=== PATIENT | male | born 1960 | race Caucasian/White ===

== ENCOUNTER 2016-11-14 00:07 | Emergency (ER) | payer OTHER, SELFPAY ==
[2016-11-14] MEDS ORDERED: Ondansetron HCl/PF 4 MG/2 ML Vial ONE (00:44)
[2016-11-14 01:07] LABS: Lactic Acid - Sepsis 2.1 mmol/L (0.5-2.2)
[2016-11-14 01:15] LABS: Band 4 % (5-11); Hematocrit 37.9 % (42.0-52.0); Mean Platelet Volume 8.2 fL (7.4-10.4); Neutrophil 87 % (42-75); Red Blood Cell (RBC) Count 4.31 mill/uL (4.70-6.10); White Blood Cell (WBC) Count 21.6 thou/uL (4.8-10.8)
[2016-11-14] MEDS ORDERED: Acetaminophen 500 MG TAB ONE (01:20)
[2016-11-14 02:09] LABS: Bilirubin Negative (Negative); Blood, Urine Small (Negative); Glucose, Urine (Dipstick) 100 mg/dL (Negative); Ketone, Urine 40 mg/dL (Negative); Protein, Urine (Dipstick) 30 mg/dL (Neg-Trace)
[2016-11-14 02:10] LABS: Nitrite Negative (Negative)
[2016-11-14 02:33] LABS: Bacteria/HPF Rare-Few HPF (None Seen); Hyaline Casts/LPF 0-3 HYALINE CAST LPF (0-3 Hyaline); Squamous Epithelial None Seen HPF (0-3)
[2016-11-14 02:35] LABS: Yeast-All Forms None Seen HPF (None Seen)
[2016-11-14 02:51] LABS: Chloride 101 mmol/L (98-107)
[2016-11-14 02:52] LABS: Calcium 9.8 mg/dL (7.8-10.44)
[2016-11-14 02:53] LABS: Globulin 3.4 g/dL (2.4-3.5); Protein, Total 7.2 g/dL (6.0-8.3)
[2016-11-14 02:54] LABS: Anion Gap 13 mmol/L (10-20); Bilirubin, Total 0.7 mg/dL (0.2-1.2); Carbon Dioxide 24 mmol/L (22-29)
[2016-11-14 02:55] LABS: Alkaline Phosphatase 101 U/L (40-150)
[2016-11-14 02:56] LABS: BUN (Urea Nitrogen) 12 mg/dL (8.4-25.7); Calc. Creatinine Clearance 0 mL/min (70-130); Estimated GFR-MDRD 83
[2016-11-14 02:57] LABS: AST (SGOT) 10 U/L (5-34)
[2016-11-14] MEDS ORDERED: cefTRIAXone\\ROCEPHIN 2 GM VIAL ONE (02:57)
[2016-11-14 02:58] LABS: ALT (SGPT) 7 U/L (8-55); Lipase 12 U/L (8-78)
[2016-11-14 02:59] LABS: CK (CPK) 46 U/L (30-200)
[2016-11-14 06:57] LABS: pH (Venous) 7.565 (7.35-7.45)
[2016-11-14 06:58] LABS: Anion Gap 9 mmol/L (-14-95); T. Carbon Dioxide 23.6 mmol/L (1.0-85.0); vO2 Saturation-calc 96.6 % (0.0-100.0)
--- NOTE | 2016-11-14 07:59 | RAD ---
SINGLE VIEW OF THE CHEST: COMPARISON: 04/17/16. HISTORY: Fever, chills, and vomiting. FINDINGS: Single view of the chest shows a normal sized cardiomediastinal silhouette. There is no evidence of consolidation, mass, or pleural effusion. The bones are unremarkable. IMPRESSION: No evidence of acute cardiopulmonary disease. POS: [facility]
== END 2016-11-14 06:08 | disposition left against medical advice (07) ==
LOC: ERS 00:07
DX: N39.0 Urinary tract infection, site not specified (principal); E11.9 Type 2 diabetes mellitus without complications; I25.2 Old myocardial infarction; I10 Essential (primary) hypertension; Z87.891 Personal history of nicotine dependence; Z79.899 Other long term (current) drug therapy; Z79.84 Long term (current) use of oral hypoglycemic drugs; Z79.4 Long term (current) use of insulin; Z79.82 Long term (current) use of aspirin
CPT/HCPCS: 36415; 71010; 80053; 81003; 81015; 82010; 82330; 82550; 82803; 83605; 83690; 85025; 87040; 87077; 87086; 87186; 93005; 96361; 96365; 96375; J0696; J2405

== ENCOUNTER 2017-03-14 08:40 | Outpatient (CLI) | payer MEDICAID ==
[2017-03-14 10:11] LABS: Hemoglobin 13.4 g/dL (14.0-18.0); Mean Corpuscular Hemoglobin 30.3 pg (27.0-31.0); Mean Corpuscular Volume 89.3 fl (80.0-94.0); Mean Platelet Volume 7.8 fL (7.4-10.4); Platelet Count 233 thou/uL (130-400); RBC Distribution Width 12.6 % (11.5-14.5); Red Blood Cell (RBC) Count 4.41 mill/uL (4.70-6.10); White Blood Cell (WBC) Count 15.4 thou/uL (4.8-10.8)
[2017-03-14 10:33] LABS: Anion Gap 15 mmol/L (10-20); BUN (Urea Nitrogen) 14 mg/dL (8.4-25.7); Calc. Creatinine Clearance 0 mL/min (70-130); Carbon Dioxide 26 mmol/L (22-29); Chloride 101 mmol/L (98-107); Estimated GFR-MDRD 75; Glucose 198 mg/dL (70-105); Potassium 5.3 mmol/L (3.5-5.1); Sodium 137 mmol/L (136-145)
== END 2017-03-14 08:41 | disposition home or self-care (01) ==
LOC: LABBT 08:40
PROVIDERS: ATTEND Orthopaedic Surgery
DX: Z01.818 Encounter for other preprocedural examination (principal); Q74.1 Congenital malformation of knee
CPT/HCPCS: 80048; 85027; 93005; 93010

== ENCOUNTER 2017-03-18 10:56 | Day surgery (SDC) | payer MEDICAID ==
[2017-03-14 09:11] VITALS: BMI 23.6
[2017-03-18] MEDS ORDERED: CEFAZOLIN/Water 2 GM/20 ML SYRINGE ONE (11:28)
[2017-03-18] MEDS ORDERED: Lidocaine 1% (PF) 30 ML VIAL ONE (11:51)
[2017-03-18] MEDS ORDERED: Midazolam HCl 2 mg/2 ml Vial ONE (11:51)
[2017-03-18] MEDS ORDERED: Fentanyl 100 MCG/2 ML VIAL ONE ×2 (11:51→12:29)
[2017-03-18] MEDS ORDERED: Bupivacaine PF 0.5% 30 ML VIAL ONE (11:55)
[2017-03-18] MEDS ORDERED: Ropivacaine 0.2% HCl/PF (40 MG/20 ML VIAL) ONE (12:00)
[2017-03-18] MEDS ORDERED: Ropivacaine 0.5% HCl/PF (150 MG/30 ML VIAL) ONE (12:00)
[2017-03-18] MEDS ORDERED: Promethazine HCl 25 MG/ML VIAL IM PRN (12:20)
[2017-03-18] MEDS ORDERED: Zolpidem Tartrate 5 MG TAB PO PRN (12:20)
[2017-03-18] MEDS ORDERED: Ondansetron HCl/PF 4 MG/2 ML Vial IVP PRN (12:20)
[2017-03-18] MEDS ORDERED: traMADol HCl 50 MG TAB PO PRN ×2 (12:20)
[2017-03-18] MEDS ORDERED: Ropivacaine 0.2% 550 ML 550 ML NERVE BLCK SCH (12:20)
[2017-03-18] MEDS ORDERED: HYDROcodone/Acetaminophen 5/325 mg Tablet PO PRN ×2 (12:20)
[2017-03-18] MEDS ORDERED: Fentanyl 100 MCG/2 ML VIAL IV PRN (12:21)
[2017-03-18] MEDS ORDERED: Metoclopramide HCl 10 MG/2 ML VIAL ONE (12:30)
[2017-03-18] MEDS ORDERED: PHENYLEPHRINE-NS 100 MCG/ML 10 ML SYRINGE ONE (12:30)
[2017-03-18] MEDS ORDERED: Dexamethasone 20 MG/5 ML VIAL ONE (12:30)
[2017-03-18] MEDS ORDERED: Propofol 200 MG/20 ML VIAL ONE (12:30)
[2017-03-18] MEDS ORDERED: Ondansetron HCl/PF 4 MG/2 ML Vial ONE (12:30)
[2017-03-18] MEDS ORDERED: ePHEDrine/0.9% NaCl/PF SYRINGE 50 mg/10 ml ONE (12:30)
[2017-03-18] MEDS ORDERED: Lidocaine 1% PF 5 ML VIAL ONE (12:30)
[2017-03-18] MEDS ORDERED: HYDROmorphone 0.5 MG/0.5 ML SYRINGE ONE (12:35)
--- NOTE | 2017-03-18 14:32 | RAD ---
RIGHT KNEE ONE VIEW FLUOROSCOPIC: History: Patellar fracture. Comparison: None. FINDINGS: Evaluation of the patella and tibia is limited on a single AP spot fluoroscopic image. IMPRESSION: Single spot fluoroscopic image for surgical purposes. POS: [facility]
--- NOTE | 2017-03-18 20:37 | OP ---
DATE OF PROCEDURE: 03/18/2017. PREOPERATIVE DIAGNOSIS: Symptomatic bipartite patella, right. POSTOPERATIVE DIAGNOSIS: Symptomatic bipartite patella, right. SURGICAL PROCEDURE: Excision of right symptomatic bipartite patella. ANESTHESIA: General. SURGEON: Vito Lerma M.D. TOURNIQUET TIME: A 23 minutes at 300 mmHg. SPECIMEN: Bipartite fragment discarded. COMPLICATIONS: None. DRAINS: None. SPECIMEN: None. OUTCOME: Satisfactory. INDICATIONS: Patient is a pleasant 57-year-old gentleman who presents with a history of a painful martinez perior lateral patella, especially when he kneels on the knee. Workup included plain x-rays that hudson w bipartite fragment that appear unstable. He has pain to direct palpation in this area and after di scussion with the patient, we have decided to proceed with excision of the bipartite fragment. Infor med consent has been obtained. PROCEDURE IN DETAIL: Patient was brought to the operating room and a timeout performed followed by i nduction of general anesthesia. Patient was positioned supine on the OR table then a sterile prep an d drape was performed. Next, the limb was exsanguinated with Esmarch bandage, tourniquet inflated to 300 mmHg. A small linear incision was made vertically over the lateral aspect of the patella after the skin was sharply incised. Dissection was carried down sharply right along the edge of the patell a incising the lateral retinaculum and periosteum. Using subperiosteal dissection, the retinaculum w as released off of the lateral edge of the patella and then the retinaculum was elevated off the wallace lla revealing the two bipartite fragments. These were both found to be highly mobile and felt to be consistent with the patient's pain symptoms. As such, the two bipartite fragments were removed witho ut difficulty once the surrounding soft tissue had been released from them. Once removed, some small bony prominences were smoothed with the rongeur and then the knee was irrigated with normal saline w ith bulb syringe. A #1 Ethibond suture was used to reapproximate the lateral retinaculum and joint c apsule followed by 2-0 Vicryl and laura for the skin. A Xeroform gauze, Webril, and Herb wrap dress ing was applied to the knee. The patient was placed in knee immobilizer and then then the tourniquet was let down and patient was transferred to recovery room in stable condition. There were no compli cations. He tolerated the procedure well.
== END 2017-03-18 15:45 | disposition home or self-care (01) ==
LOC: SDC 10:56
PROVIDERS: ATTEND Orthopaedic Surgery
PROC: 0QBD0ZZ Excision of Right Patella, Open Approach (ICD-10-PCS; principal; 2017-03-18)
DX: Q74.1 Congenital malformation of knee (principal); I25.10 Atherosclerotic heart disease of native coronary artery without angina pectoris; E11.9 Type 2 diabetes mellitus without complications; M47.9 Spondylosis, unspecified; Z79.82 Long term (current) use of aspirin; Z79.84 Long term (current) use of oral hypoglycemic drugs; Z79.899 Other long term (current) drug therapy; Z88.6 Allergy status to analgesic agent; Z88.5 Allergy status to narcotic agent; Z88.8 Allergy status to other drugs, medicaments and biological substances; Z96.643 Presence of artificial hip joint, bilateral; Z95.818 Presence of other cardiac implants and grafts; Z98.890 Other specified postprocedural states; Z87.891 Personal history of nicotine dependence
CPT/HCPCS: 76001; A4306; J0131; J1100; J1170; J2001; J2250; J2405; J2704; J2765; J2795; J3010; S0020

== ENCOUNTER 2017-04-18 09:55 | Outpatient (CLI) | payer MEDICAID ==
--- NOTE | 2017-04-18 11:50 | RAD ---
PA AND LATERAL CHEST RADIOGRAPH: Date: 04-18-17 History: Dyspnea. Comparison: 04-17-16 FINDINGS: Cardiac silhouette and pulmonary vasculature are within normal limits. Lung are clear. Vascular calci fications of the thoracic aorta. Degenerative changes are noted in the spine. Metallic suture materia l overlies the anterior abdomen in the midline. IMPRESSION: Stable chest without evidence of an acute cardiopulmonary process. POS: [facility]
== END 2017-04-18 09:56 | disposition home or self-care (01) ==
LOC: RAD 09:55
PROVIDERS: ATTEND Internal Medicine Critical Care Medicine
DX: R06.00 Dyspnea, unspecified (principal)
CPT/HCPCS: 71046

== ENCOUNTER 2017-05-30 08:36 | Emergency (ER) | payer OTHER ==
[2017-05-30 10:21] LABS: #Basophils 0.1 thou/uL (0.0-0.2); #Eosinphils 0.2 thou/uL (0.0-0.7); #Lymphocytes 2.5 thou/uL (1.20-3.40); #Monocytes 0.9 thou/uL (0.11-0.59); #Neutrophils 9.8 thou/uL (1.40-6.50); %Basophils 0.4 % (0.0-1.0); %Eosinophils 1.6 % (0.0-10.0); %Lymphocytes 18.8 % (21.0-51.0); %Monocytes 6.5 % (0.0-10.0); %Neutrophils 72.8 % (42.0-75.0); Hemoglobin 14.1 g/dL (14.0-18.0); Mean Corpuscular HGB CONC 34.3 g/dL (32.0-36.0); Mean Corpuscular Hemoglobin 30.8 pg (27.0-31.0); Mean Corpuscular Volume 89.9 fl (80.0-94.0); Mean Platelet Volume 7.8 fL (7.4-10.4); Platelet Count 237 thou/uL (130-400); RBC Distribution Width 12.3 % (11.5-14.5); Red Blood Cell (RBC) Count 4.57 mill/uL (4.70-6.10); White Blood Cell (WBC) Count 13.4 thou/uL (4.8-10.8)
[2017-05-30] MEDS ORDERED: Ondansetron HCl/PF 4 MG/2 ML Vial ONE (10:22)
[2017-05-30 10:43] LABS: Bilirubin Negative (Negative); Blood, Urine Negative (Negative); Clarity CLEAR (Clear); Glucose, Urine (Dipstick) 100 mg/dL (Negative); Leukocyte Negative (Negative); Nitrite Negative (Negative); Protein, Urine (Dipstick) Negative (Neg-Trace); Specific Gravity, Urine 1.011 (1.002-1.036); Urobilinogen 0.2 mg/dL (0.2-1.0)
[2017-05-30 10:48] LABS: ALT (SGPT) 12 U/L (8-55); AST (SGOT) 11 U/L (5-34); Albumin 4.7 g/dL (3.5-5.0); Alkaline Phosphatase 141 U/L (40-150); Anion Gap 13 mmol/L (10-20); BUN (Urea Nitrogen) 18 mg/dL (8.4-25.7); Bilirubin, Total 0.5 mg/dL (0.2-1.2); CRP (Inflammatory) Less than 0.50 mg/dL (= or < 0.5); Calc. Creatinine Clearance 0 mL/min (70-130); Calcium 10.5 mg/dL (7.8-10.44); Carbon Dioxide 23 mmol/L (22-29); Chloride 105 mmol/L (98-107); Estimated GFR-MDRD 81; Globulin 3.5 g/dL (2.4-3.5); Glucose 160 mg/dL (70-105); Lipase 29 U/L (8-78); Potassium 4.3 mmol/L (3.5-5.1); Protein, Total 8.2 g/dL (6.0-8.3); Sodium 137 mmol/L (136-145)
[2017-05-30 10:52] LABS: CKMB 0.9 ng/mL (0-6.6); Troponin I Less than 0.010 ng/mL (< 0.028)
--- NOTE | 2017-05-30 11:01 | CT ---
CT ADOMEN AND PELVIS WITH CONTRAST: Date: 05/30/17 COMPARISON: 11/08/11 and 03/02/16. HISTORY: Nausea, vomiting, and dizziness. Abdominal pain. TECHNIQUE: Multiple contiguous axial images were obtained in a CT of the abdomen and pelvis with contrast. Coron al reformats were performed. FINDINGS: The liver, gallbladder, kidneys, adrenal glands, spleen, and pancreas are unremarkable. No free air, free fluid, or stranding changes are seen in the abdomen or pelvis. Scattered diverticula are seen in the colon. The small bowel is unremarkable. There is mild ectasia of the infrarenal aorta. No abdominal or pelvic lymphadenopathy seen. Degenerative changes are seen in the spine. The abdominal wall soft tissues and visualized inferior t horax are unremarkable. IMPRESSION: 1. No evidence of acute intraabdominal/pelvic abnormality. 2. Diverticulosis. POS: [facility]
[2017-05-30] MEDS ORDERED: Mag-Al 1200 mg/1200 mg/30 ML UDCUP ONE (11:17)
[2017-05-30] MEDS ORDERED: Lidocaine Viscous Sol 2% 15 ml UD Cup ONE (11:17)
--- NOTE | 2017-08-03 16:15 | EKG ---
Test Reason : WEAKNESS Blood Pressure : / mmHG Vent. Rate : 058 BPM Atrial Rate : 058 BPM P-R Int : 162 ms QRS Dur : 100 ms QT Int : 412 ms P-R-T Axes : 081 034 051 degrees QTc Int : 404 ms Sinus bradycardia Incomplete right bundle branch block Junctional ST depression, probably normal Borderline ECG No changes since 14-NOV-2016 Confirmed by HOWARD CAMPBELL, HEIDI ([id number]), international editorial producer KEV SINGH ([id number]) on 08/03/2017 4:15:51 PM Referred By: Confirmed By:HEIDI LAWRENCE MD
== END 2017-05-30 12:01 | disposition home or self-care (01) ==
LOC: ERS 08:36
DX: K29.70 Gastritis, unspecified, without bleeding (principal); E11.9 Type 2 diabetes mellitus without complications; I25.2 Old myocardial infarction; I10 Essential (primary) hypertension; M16.11 Unilateral primary osteoarthritis, right hip; F17.210 Nicotine dependence, cigarettes, uncomplicated; Z71.6 Tobacco abuse counseling; Z79.84 Long term (current) use of oral hypoglycemic drugs; Z79.82 Long term (current) use of aspirin; Z79.899 Other long term (current) drug therapy
CPT/HCPCS: 74177; 80053; 81003; 82550; 82553; 83690; 84484; 85025; 85652; 86140; 87086; 93005; 96361; 96374; 99406; J2405

== ENCOUNTER 2017-07-08 11:25 | Outpatient (CLI) | payer OTHER ==
[2017-07-08 12:16] LABS: Hemoglobin 13.5 g/dL (14.0-18.0); Mean Corpuscular HGB CONC 34.9 g/dL (32.0-36.0); Mean Corpuscular Hemoglobin 30.3 pg (27.0-31.0); Mean Platelet Volume 8.1 fL (7.4-10.4); Platelet Count 210 thou/uL (130-400); RBC Distribution Width 12.2 % (11.5-14.5); Red Blood Cell (RBC) Count 4.46 mill/uL (4.70-6.10); White Blood Cell (WBC) Count 10.5 thou/uL (4.8-10.8)
[2017-07-08 12:35] LABS: ALT (SGPT) 12 U/L (8-55); AST (SGOT) 12 U/L (5-34); Albumin 4.5 g/dL (3.5-5.0); Alkaline Phosphatase 129 U/L (40-150); Anion Gap 10 mmol/L (10-20); BUN (Urea Nitrogen) 19 mg/dL (8.4-25.7); Bilirubin, Total 0.4 mg/dL (0.2-1.2); Calc. Creatinine Clearance 0 mL/min (70-130); Carbon Dioxide 24 mmol/L (22-29); Chloride 105 mmol/L (98-107); Estimated GFR-MDRD 72; Globulin 3.3 g/dL (2.4-3.5); Glucose 185 mg/dL (70-105); Potassium 4.1 mmol/L (3.5-5.1); Protein, Total 7.8 g/dL (6.0-8.3); Sodium 135 mmol/L (136-145)
== END 2017-07-08 11:26 | disposition home or self-care (01) ==
LOC: LABBT 11:25
PROVIDERS: ATTEND Internal Medicine Cardiovascular Disease
DX: Z01.812 Encounter for preprocedural laboratory examination (principal); I25.119 Atherosclerotic heart disease of native coronary artery with unspecified angina pectoris
CPT/HCPCS: 80053; 85027

== ENCOUNTER 2017-07-10 06:01 | Day surgery (SDC) | payer OTHER ==
[2017-07-08 11:48] VITALS: BMI 23.0
[2017-07-10] MEDS ORDERED: Lidocaine 1% (PF) 30 ML VIAL ONE ×2 (06:36→08:21)
[2017-07-10] MEDS ORDERED: Heparin 0 ML ONE (06:36)
[2017-07-10] MEDS ORDERED: Diazepam 5 MG TAB ONE (07:09)
[2017-07-10 07:21] LABS: PTT 30.9 SEC (22.9-36.1); Prothrombin Time 13.7 SEC (12.0-14.7)
[2017-07-10] MEDS ORDERED: Fentanyl 100 MCG/2 ML VIAL ONE (08:44)
[2017-07-10] MEDS ORDERED: Midazolam HCl 2 mg/2 ml Vial ONE ×2 (08:44→09:01)
[2017-07-10] MEDS ORDERED: Nitroglycerin 100MG/250ML BOT 250 ML ONE (09:04)
[2017-07-10] MEDS ORDERED: Iopamidol 370 76% 100 ML VIAL ONE (11:44)
--- NOTE | 2017-07-10 15:08 | DIS ---
DATE OF ADMISSION: 07/10/2017 DATE OF DISCHARGE: 07/10/2017 CARDIOLOGY SUMMARY Mr. Sherwood underwent cardiac catheterization today, revealed diffuse atherosclerotic heart disease with very small vessels, especially the LAD system. Specifically, the patient's, 1. Left main normal. 2. LAD 50%-60% proximal. 3. LAD 60%-70% after a diagonal branch with some distal disease, very small vessel. 4. Circumflex 50%-60%. 5. Right coronary, several lesions 50%-60%. Previously placed stent was patent with good flow. Ejection fraction of 60%. The patient's LDL cholesterol is controlled. The patient has continued to have chest pain recently. It is mostly epigastric and in the left arm. This persisted despite Protonix. The patient was asked to take clopidogrel starting last week, but he said this has not yet been approved, but he now thinks it is approved and he has it at the pharmacy. I have also asked him to take Nitroglycerin if needed and add isosorbide. We will take him off carvedilol. If the pain persists, bypass surgery would need to be considered, although the patient's prognosis would still likely be poor if he continues to smoke along with diabetes. The patient understands that it is critical to quit smoking and take medicines as prescribed. He will see us in a couple of weeks. If the symptoms persist, we will refer for consideration for bypass surgery, although again I do not think he is an optimal candidate due to the small vessels. The patient wishes a trial of medical therapy first. AMIRAH
== END 2017-07-10 14:20 | disposition home or self-care (01) ==
LOC: CCL 06:01
PROVIDERS: ATTEND Internal Medicine Cardiovascular Disease
PROC: 4A023N7 Measurement of Cardiac Sampling and Pressure, Left Heart, Percutaneous Approach (ICD-10-PCS; principal; 2017-07-10)
DX: I25.119 Atherosclerotic heart disease of native coronary artery with unspecified angina pectoris (principal); I10 Essential (primary) hypertension; E78.00 Pure hypercholesterolemia, unspecified; K21.9 Gastro-esophageal reflux disease without esophagitis; F17.210 Nicotine dependence, cigarettes, uncomplicated; Z88.6 Allergy status to analgesic agent; Z88.8 Allergy status to other drugs, medicaments and biological substances
CPT/HCPCS: 75625; 76942; 80061; 85610; 85730; 93458; 99152; 99153; C1769; J1644; J2001; J2250; J3010

== ENCOUNTER 2017-07-17 10:01 | Emergency (ER) | payer OTHER ==
[2017-07-17 10:30] LABS: #Basophils 0.1 thou/uL (0.0-0.2); #Eosinphils 0.3 thou/uL (0.0-0.7); #Monocytes 0.7 thou/uL (0.11-0.59); #Neutrophils 7.7 thou/uL (1.40-6.50); %Basophils 0.5 % (0.0-1.0); %Eosinophils 2.7 % (0.0-10.0); %Lymphocytes 18.3 % (21.0-51.0); %Monocytes 6.8 % (0.0-10.0); %Neutrophils 71.6 % (42.0-75.0); Hemoglobin 12.5 g/dL (14.0-18.0); Mean Corpuscular HGB CONC 33.4 g/dL (32.0-36.0); Mean Corpuscular Hemoglobin 29.5 pg (27.0-31.0); Mean Corpuscular Volume 88.1 fl (80.0-94.0); Platelet Count 181 thou/uL (130-400); Red Blood Cell (RBC) Count 4.26 mill/uL (4.70-6.10); White Blood Cell (WBC) Count 10.7 thou/uL (4.8-10.8)
[2017-07-17 10:57] LABS: CKMB 1.6 ng/mL (0-6.6)
[2017-07-17] MEDS ORDERED: Isosorbide Dinitrate 20 MG TAB PO SCH (11:15)
[2017-07-17 11:17] LABS: Troponin I 0.014 ng/mL (< 0.028)
[2017-07-17 11:20] LABS: ALT (SGPT) 10 U/L (8-55); AST (SGOT) 12 U/L (5-34); Albumin 4.2 g/dL (3.5-5.0); Alkaline Phosphatase 116 U/L (40-150); Anion Gap 10 mmol/L (10-20); BUN (Urea Nitrogen) 23 mg/dL (8.4-25.7); Bilirubin, Total 0.3 mg/dL (0.2-1.2); CK (CPK) 89 U/L (30-200); Calc. Creatinine Clearance 0 mL/min (70-130); Calcium 9.7 mg/dL (7.8-10.44); Carbon Dioxide 23 mmol/L (22-29); Chloride 106 mmol/L (98-107); Estimated GFR-MDRD 87; Glucose 216 mg/dL (70-105); Lipase 20 U/L (8-78); Potassium 4.4 mmol/L (3.5-5.1); Protein, Total 7.2 g/dL (6.0-8.3); Sodium 135 mmol/L (136-145)
--- NOTE | 2017-07-17 12:19 | RAD ---
PORTABLE CHEST: HISTORY: Chest pain. COMPARISON: 11/14/2016 FINDINGS: The lung santana appear clear. Vascular markings are normal. The heart and mediastinum are unremarka ble. IMPRESSION: Unremarkable portable chest. POS: [facility]
== END 2017-07-17 13:03 | disposition home or self-care (01) ==
LOC: ERS 10:01
DX: I25.10 Atherosclerotic heart disease of native coronary artery without angina pectoris (principal); E11.9 Type 2 diabetes mellitus without complications; Z79.84 Long term (current) use of oral hypoglycemic drugs; I25.2 Old myocardial infarction; I10 Essential (primary) hypertension; F17.210 Nicotine dependence, cigarettes, uncomplicated; Z79.899 Other long term (current) drug therapy; Z79.82 Long term (current) use of aspirin
CPT/HCPCS: 71045; 80053; 82550; 82553; 83690; 84484; 85025; 93005

== ENCOUNTER 2017-08-09 08:33 | Outpatient (CLI) | payer OTHER ==
[2017-08-09] MEDS ORDERED: EPINEPHrine 1 MG/ML AMP ONE (09:00)
[2017-08-09] MEDS ORDERED: Iopamidol 300 61% 50 ML VIAL FS ONE (09:00)
[2017-08-09] MEDS ORDERED: Sodium Chloride 0.9% (PF) 10 ML VIAL ONE (09:00)
[2017-08-09] MEDS ORDERED: Lidocaine 1% PF 10 ML AMP ONE (09:00)
--- NOTE | 2017-08-09 10:48 | RAD ---
LEFT SHOULDER ARTHROGRAM: Comparison: None. Pre-procedure diagnosis: Left shoulder pain Post-procedure diagnosis: Left shoulder pain Engraver Copperplate: Jose Guadalupe Complications: None Anesthesia: 5 ml buffered 1% Lidocaine Contrast: 10 ml of iodinated contrast Technique: Prior to the procedure the risks and benefits of a left shoulder arthrogram was explained to the kasandra ent and he consented fully to the procedure. A marker was used to dianne the area of best entry into the shoulder on the skin. The shoulder was prep ped and draped in the usual sterile fashion. Lidocaine was used to anesthetize the skin and soft tissues down towards the left shoulder joint. A 2 2 gauge spinal needle was then placed using fluoroscopic guidance into the left shoulder joint. Contr ast was administered which confirmed to the left shoulder joint. A total of 10 ml of contrast was adm inistered which adequately distended the shoulder joint. The needle was removed. The patient tolerated the procedure well without immediate or post-procedure complication. The eliseo t was sent to CT for CT of the left shoulder. POS: [facility]
--- NOTE | 2017-08-09 11:42 | CT ---
CT ARTHROGRAM OF THE LEFT SHOULDER: INDICATION: Left shoulder pain. TECHNIQUE: Multiple CT images were obtained of the left shoulder following intraarticular administration of a di lute CT contrast solution. Please see the separately dictated left shoulder arthrogram for details c oncerning the injection technique. FINDINGS: No full-thickness rotator cuff tear is demonstrated. The biceps tendon is located. There is mild de generative arthrosis involving the glenohumeral joint with subchondral cyst-like abnormality seen inv olving both posterior glenoid heads and marginal osteophyte seen off of the inferior aspect of the hu meral head. There are degenerative subchondral cyst-like abnormalities seen involving the greater tu berosity. There is mild AC joint osteoarthrosis. There is a type II acromion. No muscular atrophy is evident. NO enlarged lymph nodes are demonstrated. The visualized left lung demonstrates parasep hazel emphysema and some scattered central lobular emphysema. No suspicious pulmonary nodule is eviden t. There is a small bone island within the posterior left acromial process. IMPRESSION: 1. No full-thickness rotator cuff tear demonstrated. 2. Mild glenohumeral and mild acromioclavicular joint osteoarthrosis. POS: [facility]
== END 2017-08-09 08:34 | disposition home or self-care (01) ==
LOC: RAD 08:33
PROVIDERS: ATTEND Orthopaedic Surgery
DX: M25.512 Pain in left shoulder (principal); M19.012 Primary osteoarthritis, left shoulder
CPT/HCPCS: 23350; J0171

== ENCOUNTER 2017-11-09 08:50 | Emergency (ER) | payer OTHER ==
--- NOTE | 2017-11-09 10:54 | RAD ---
THREE VIEWS LEFT FOOT: DATE: 11/09/17. HISTORY: Left foot pain. The patient reports throbbing left foot pain for 3 weeks. FINDINGS: No acute fracture or dislocation is seen. Lisfranc joint is normally aligned. There is irregularity involving the left 1st metatarsal medially which may be secondary to remote injury. A posterior chetan caneal enthesophyte is seen. No other osseous abnormality. No radiopaque foreign body is identified . IMPRESSION: 1. Irregularity involving the 1st metatarsal which may be secondary to prior injury. Clinical corre lation is recommended. 2. No acute fracture is visualized, and no radiopaque foreign body is seen. POS: [facility]
== END 2017-11-09 10:20 | disposition home or self-care (01) ==
LOC: ERS 08:50
DX: B07.0 Plantar wart (principal); E11.9 Type 2 diabetes mellitus without complications; I25.2 Old myocardial infarction; I10 Essential (primary) hypertension; F17.210 Nicotine dependence, cigarettes, uncomplicated; Z79.84 Long term (current) use of oral hypoglycemic drugs; Z79.899 Other long term (current) drug therapy; Z79.82 Long term (current) use of aspirin

== ENCOUNTER 2018-07-07 10:19 | Outpatient (CLI) | payer OTHER ==
--- NOTE | 2018-07-07 10:37 | RAD ---
Exam: Chest 2 views HISTORY:Dyspnea Comparison: 04/18/2017 FINDINGS: Lungs: No masses or consolidation. Lungs are hyperinflated. Cardiac silhouette: Normal size Pulmonary vessels: Normal Pleural Spaces: Clear Pneumothorax: None There is atherosclerosis. Osseous abnormalities: None of acuity. IMPRESSION: No focal consolidation. COPD.
== END 2018-07-07 10:20 | disposition home or self-care (01) ==
LOC: RAD 10:19
PROVIDERS: ATTEND Internal Medicine Critical Care Medicine
DX: R06.00 Dyspnea, unspecified (principal); J44.9 Chronic obstructive pulmonary disease, unspecified
CPT/HCPCS: 71046

== ENCOUNTER 2018-09-18 10:41 | Emergency (ER) | payer OTHER ==
[2018-09-18] MEDS ORDERED: Morphine 4 MG/ML VIAL ONE (11:01)
--- NOTE | 2018-09-18 11:43 | CT ---
CT THORACIC SPINE NONCONTRAST; Date: 09/18/18 HISTORY: 58-year-old male with mid back pain. FINDINGS: Small bullae and blebs at medial aspect of bilateral upper lobes. No pleural effusion. No thoracic ao rtic aneurysm. No major pathology identified involving perivertebral spaces. No scoliosis. Chronic-ap pearing mild loss of height of T9 and T10 diffusely. Moderate discogenic degenerative changes at mult iple levels in mid and lower thoracic spine. No evidence of acute fracture. No bony retropulsion. No destructive osseous lesion. No high grade bony central spinal canal stenosis. Mildly exaggerated kyph osis of lower thoracic spine. IMPRESSION: 1. No acute compression fracture. 2. Thoracic spondylosis consisting of multilevel moderate degenerative disc disease in mid and lower levels. POS: [facility]
--- NOTE | 2018-09-18 11:53 | CT ---
CT LUMBAR SPINE NONCONTRAST: Date: 09/27/18 HISTORY: 58-year-old male with acute low back pain. FINDINGS: Based on the thoracic spine CT obtained on the same day, the level with bilateral small ribs is L1 ra ther than T12. The last lumbar-type vertebra is L5, with normal morphology of L5-S1 anatomically. Siri tebral body heights are maintained. No spondylolysis or major spondylolisthesis. Disc space narrowing is mild to moderate at L5-S1, T12-L1, and L1-2. Vertebral body heights are maintained. No acute frac ture lucency visualized. 3 cm fusiform dilation of distal abdominal aorta with heavy atherosclerotic calcification. No hematoma in the prevertebral space. At L4-5, there is very severe central spinal ca nal stenosis due to a combination of mild disc bulge, severe bilateral facet DJD (with facet hypertro phy and vacuum joint phenomenon, and moderate ligamentum flavum thickening). Moderate neural foramina l stenosis at several levels bilaterally in the mid and lower lumbar spine. IMPRESSION: 1. No acute compression fracture. 2. Very severe central spinal canal stenosis at L4-5. 3. Severe facet osteoarthrosis at L4-5. 4. Mild fusiform aneurysm and atherosclerosis of distal abdominal aorta. POS: [facility]
[2018-09-18 12:06] LABS: Bilirubin Negative (Negative); Blood, Urine Negative (Negative); Clarity Clear (Clear); Glucose, Urine (Dipstick) Greater than 1000 mg/dL (Negative); Leukocyte Negative Leu/uL (Negative); Nitrite Negative (Negative); Protein, Urine (Dipstick) 10 mg/dL (Neg-Trace); Urobilinogen Normal mg/dL (Less than 2)
[2018-09-18 12:33] LABS: #Basophils 0.1 thou/uL (0.0-0.2); #Eosinphils 0.4 thou/uL (0.0-0.7); #Lymphocytes 2.4 thou/uL (1.20-3.40); #Monocytes 0.8 thou/uL (0.11-0.59); %Basophils 0.5 % (0.0-1.0); %Eosinophils 3.4 % (0.0-10.0); %Lymphocytes 20.4 % (21.0-51.0); %Monocytes 6.8 % (0.0-10.0); Hemoglobin 12.2 g/dL (14.0-18.0); Mean Corpuscular HGB CONC 33.9 g/dL (32.0-36.0); Mean Corpuscular Hemoglobin 29.3 pg (27.0-31.0); Mean Corpuscular Volume 86.4 fL (78.0-98.0); Mean Platelet Volume 7.8 fL (7.4-10.4); Platelet Count 199 thou/uL (130-400); RBC Distribution Width 12.4 % (11.5-14.5); Red Blood Cell (RBC) Count 4.16 mill/uL (4.70-6.10); White Blood Cell (WBC) Count 11.6 thou/uL (4.8-10.8)
[2018-09-18 12:55] LABS: ALT (SGPT) 14 U/L (8-55); AST (SGOT) 12 U/L (5-34); Albumin 4.3 g/dL (3.5-5.0); Alkaline Phosphatase 136 U/L (40-150); Anion Gap 10 mmol/L (10-20); BUN (Urea Nitrogen) 20 mg/dL (8.4-25.7); Bilirubin, Total 0.3 mg/dL (0.2-1.2); Calc. Creatinine Clearance 0 mL/min (70-130); Calcium 10.1 mg/dL (7.8-10.44); Carbon Dioxide 26 mmol/L (22-29); Chloride 104 mmol/L (98-107); Estimated GFR-MDRD 71; Glucose 237 mg/dL (70-105); Potassium 4.6 mmol/L (3.5-5.1); Protein, Total 7.3 g/dL (6.0-8.3); Sodium 135 mmol/L (136-145)
--- NOTE | 2018-09-18 14:14 | CT ---
Exam: CT angiogram chest with 3-D rendering: CT angiogram abdomen with 3-D rendering: HISTORY: Low back pain FINDINGS: There is no evidence for aortic dissection involving the thoracic or abdominal aorta. Mild dilatation of the aortic root at 3.7 cm. No evidence for central pulmonary artery thrombosis. Previously noted bilateral parenchymal density seen on the prior study dated 02/08/2016 have resolved . Small uniform aneurysm of the infrarenal abdominal aorta up to 3 cm showing a slight increase in size from prior study. Wire suture stabilizing the anterior abdominal wall. Generalized spondylosis o f the thoracic and lumbar spine. IMPRESSION: No evidence for aortic dissection. Mild dilatation of the aortic root at 3.7 cm. Focal infrarenal abdominal aortic aneurysm up to 3 cm showing slight increase in size from prior stud y. Other findings as above.
[2018-09-18] MEDS ORDERED: Dexamethasone 4 mg/ml Vial ONE (14:47)
== END 2018-09-18 16:33 | disposition home or self-care (01) ==
LOC: ERS 10:41
DX: M54.16 Radiculopathy, lumbar region (principal); E11.9 Type 2 diabetes mellitus without complications; I25.2 Old myocardial infarction; I10 Essential (primary) hypertension; Z79.82 Long term (current) use of aspirin; Z79.899 Other long term (current) drug therapy
CPT/HCPCS: 36415; 71275; 72128; 72131; 80053; 81003; 85025; 96374; 96375; J1100; J2270

== ENCOUNTER 2018-11-05 07:19 | Outpatient (CLI) | payer OTHER ==
[2018-11-05 12:45] LABS: #Eosinphils 0.2 thou/uL (0.0-0.7); #Lymphocytes 2.3 thou/uL (1.20-3.40); #Monocytes 0.9 thou/uL (0.11-0.59); %Basophils 0.4 % (0.0-1.0); %Eosinophils 1.9 % (0.0-10.0); %Lymphocytes 19.9 % (21.0-51.0); %Monocytes 7.6 % (0.0-10.0); %Neutrophils 70.1 % (42.0-75.0); Hemoglobin 12.3 g/dL (14.0-18.0); Mean Corpuscular HGB CONC 34.6 g/dL (32.0-36.0); Mean Corpuscular Hemoglobin 30.6 pg (27.0-31.0); Mean Corpuscular Volume 88.4 fL (78.0-98.0); Mean Platelet Volume 8.3 fL (7.4-10.4); Platelet Count 197 thou/uL (130-400); RBC Distribution Width 12.6 % (11.5-14.5); Red Blood Cell (RBC) Count 4.01 mill/uL (4.70-6.10); White Blood Cell (WBC) Count 11.4 thou/uL (4.8-10.8)
[2018-11-05 13:08] LABS: ALT (SGPT) 15 U/L (8-55); AST (SGOT) 15 U/L (5-34); Albumin 4.4 g/dL (3.5-5.0); Alkaline Phosphatase 116 U/L (40-150); Anion Gap 10 mmol/L (10-20); BUN (Urea Nitrogen) 18 mg/dL (8.4-25.7); Bilirubin, Total 0.2 mg/dL (0.2-1.2); Calc. Creatinine Clearance 0 mL/min (70-130); Calcium 9.7 mg/dL (7.8-10.44); Carbon Dioxide 25 mmol/L (22-29); Chloride 104 mmol/L (98-107); Estimated GFR-MDRD 78; Globulin 2.8 g/dL (2.4-3.5); Glucose 141 mg/dL (70-105); Potassium 4.4 mmol/L (3.5-5.1); Protein, Total 7.2 g/dL (6.0-8.3); Sodium 135 mmol/L (136-145)
--- NOTE | 2018-11-05 17:00 | EKG ---
Test Reason : Blood Pressure : / mmHG Vent. Rate : 057 BPM Atrial Rate : 057 BPM P-R Int : 160 ms QRS Dur : 148 ms QT Int : 418 ms P-R-T Axes : 064 062 047 degrees QTc Int : 406 ms Sinus bradycardia Right bundle branch block Abnormal ECG When compared with ECG of 17-JUL-2017 10:03, No significant change was found Confirmed by DR. Melvin SEGURA ([id number]) on 11/05/2018 5:00:05 PM Referred By: DOMINIQUE Confirmed By:DR. Melvin SEGURA
== END 2018-11-05 07:20 | disposition home or self-care (01) ==
LOC: LABBT 07:19
PROVIDERS: ATTEND Surgery
DX: Z01.818 Encounter for other preprocedural examination (principal); K40.90 Unilateral inguinal hernia, without obstruction or gangrene, not specified as recurrent
CPT/HCPCS: 80053; 85025; 93005; 93010

== ENCOUNTER 2018-11-07 06:55 | Day surgery (SDC) | payer OTHER ==
[2018-11-05 11:21] VITALS: BMI 23.3
[2018-11-07] MEDS ORDERED: Fentanyl 100 MCG/2 ML VIAL ONE ×2 (08:47→10:57)
[2018-11-07] MEDS ORDERED: Bupivacaine/Epinephrine 0.25% 30 ML VIAL ONE (08:54)
[2018-11-07] MEDS ORDERED: HYDROcodone/Acetaminophen 5/325 mg Tablet ONE (12:01)
--- NOTE | 2018-11-07 12:51 | OP ---
DATE OF PROCEDURE: 11/07/2018 PREOPERATIVE DIAGNOSIS: Bilateral inguinal hernia. PROCEDURE PERFORMED: Bilateral inguinal hernia repair with mesh. INDICATIONS: A 58-year-old male with bilateral inguinal bulges, found to have hernias. FINDINGS: Bilateral direct inguinal hernia. DESCRIPTION OF PROCEDURE: After informed consent was obtained, the patient was taken to the operating room, given general mask anesthesia, placed in supine position. Abdomen was prepped and draped in usual fashion. Local anesthesia was infiltrated subcutaneously and deep and a left transverse inguinal incision was performed, subcu divided sharply. The fascia of the external oblique was incised in direction of its fibers through the external ring. Spermatic cord was isolated with a Aram drain. Cremasteric fibers . No indirect hernia seen. A direct inguinal hernia was found. This was circumscribed and reduced. Reduction maintained with a PHS hernia system. Posterior layer placed in the preperitoneal space, laid out anteriorly, sutured to the pubic tubercle medially, tucked under the external oblique fascia laterally. Hemostasis was assured. Cord placed anatomic. The external oblique fascia was closed with a running 3-0 Vicryl. Meredith was closed with interrupted 3-0 Vicryl and skin closed with a running subcuticular 4-0 Rapide. We then moved to the right side. Again, local anesthesia was infiltrated subcutaneously and deep. Transverse right inguinal incision was performed. Subcu divided sharply. The fascia of the external oblique was incised in direction of its fibers through the external ring. Spermatic cord was isolated with a Aram drain. There was no indirect hernia seen. There was a direct inguinal hernia, this was circumscribed and reduced. Reduction maintained with a PHS hernia system. The posterior layer in the preperitoneal space, the anterior was tucked under the external oblique fascia laterally, sutured to the pubic tubercle medially. Notch was cut out from the spermatic cord. Hemostasis was assured. Cord placed anatomic. The external oblique fascia was closed with a running 3-0 Vicryl. Meredith was closed with interrupted 3-0 Vicryl, skin closed with a running subcuticular 4-0 Rapide. Steri-Strips applied. Sterile bandage applied. The patient tolerated the procedure well, transferred to Recovery in good condition. Sponge and needle count verified correct x2. Job ID: [id number]
[2018-11-07] MEDS ORDERED: PROPOFOL 200 MG/20 ML VIAL ONE (13:30)
[2018-11-07] MEDS ORDERED: Lidocaine 1% PF 5 ML VIAL ONE (13:30)
[2018-11-07] MEDS ORDERED: Ondansetron PF 4 MG/2 ML Vial ONE (13:30)
== END 2018-11-07 12:10 | disposition home or self-care (01) ==
LOC: SDC 06:55
PROVIDERS: ATTEND Surgery
PROC: 0YQA0ZZ Repair Bilateral Inguinal Region, Open Approach (ICD-10-PCS; principal; 2018-11-07)
DX: K40.20 Bilateral inguinal hernia, without obstruction or gangrene, not specified as recurrent (principal); E11.9 Type 2 diabetes mellitus without complications; I25.10 Atherosclerotic heart disease of native coronary artery without angina pectoris; I71.4 Abdominal aortic aneurysm, without rupture; E78.5 Hyperlipidemia, unspecified; F41.9 Anxiety disorder, unspecified; F32.9 Major depressive disorder, single episode, unspecified; I10 Essential (primary) hypertension; M19.90 Unspecified osteoarthritis, unspecified site; F17.210 Nicotine dependence, cigarettes, uncomplicated; I25.2 Old myocardial infarction; Z79.02 Long term (current) use of antithrombotics/antiplatelets; Z79.82 Long term (current) use of aspirin; Z79.899 Other long term (current) drug therapy; Z88.6 Allergy status to analgesic agent; Z88.8 Allergy status to other drugs, medicaments and biological substances
CPT/HCPCS: 36416; C1781; J0131; J0690; J3010

== ENCOUNTER 2018-11-20 10:39 | Emergency (ER) | payer OTHER ==
[2018-11-20] MEDS ORDERED: Ketorolac Tromethamine 60 MG/2 ML VIAL ONE (11:33)
== END 2018-11-20 12:08 | disposition home or self-care (01) ==
LOC: ERS 10:39
DX: M54.12 Radiculopathy, cervical region (principal); E11.9 Type 2 diabetes mellitus without complications; I25.2 Old myocardial infarction; I10 Essential (primary) hypertension; M19.90 Unspecified osteoarthritis, unspecified site; F17.210 Nicotine dependence, cigarettes, uncomplicated; Z79.82 Long term (current) use of aspirin; Z79.899 Other long term (current) drug therapy
CPT/HCPCS: 93005; 96372; J1885

== ENCOUNTER 2019-01-07 07:09 | Day surgery (SDC) | payer OTHER ==
[2019-01-06 16:13] VITALS: BMI 23.3
--- NOTE | 2019-01-07 09:07 | RAD ---
Myelogram of Cervical spine CLINICAL HISTORY: Pain and Radiculopathy PROCEDURE: Informed consent was obtained. Suspender Maker imaging was performed. Patient was placed in a prone position and the skin of the low back was prepped and draped in a standard sterile fashion. Topical anesthesia was achieved with buffered 1% lidocaine. 22-gauge spinal needle was then advanced uneventf ully into the thecal sac from a posterior para midline approach at the right L4-5 level. 9 cc of radiopaque contrast was instilled under low pressure into the thecal sac, upon return of clear colorl ess CSF the needle hub. Imaging was stored for documentation. Needle was removed. Patient tolerated the procedure well, without complication evident. Patient was then transferred to CT to undergo subsequent CT myelogram imaging. Reference separate syeda guerra(s) for additional details. FINDINGS: Intraoperative imaging reveals a needle overlying the lumbar spinal canal, with subsequent instillation of radiopaque contrast within the thecal sac. Fluoroscopy data:0.2 minutes, 21 mcg/sq m IMPRESSION: Technically successful myelogram, as above.
--- NOTE | 2019-01-07 09:16 | CT ---
CT CERVICAL SPINE WITH CONTRAST: HISTORY: Cervical radiculopathy. COMPARISON: 10/27/2015. FINDINGS: The craniocervical junction is intact. There is degenerative hypertrophy at the C1 to articulation, with resultant narrowing of the atlantod ental interspace. There is adjacent heterotopic, multifocal ossification. C1-2:No significant stenosis. C2-3:Uncinate process and facet hypertrophy on the left results in mild osseous narrowing of the left neural foramen. No significant right neural foraminal stenosis. Central disc osteophyte is present without significant central canal stenosis. C3-4:Broad-based disc osteophyte with effacement of ventral thecal sac and mild central canal narrowi ng. As result of bilateral uncinate process and facet joint hypertrophy, there is moderate left and [id number] right neural foraminal stenosis. C4-5:Disc osteophyte formation results in mild effacement of ventral thecal sac. There is bilateral u ncinate process and facet hypertrophy with moderate right and mild to moderate left neural foraminal stenosis. C5-6:Right asymmetric disc osteophyte complex results in mild central canal stenosis and slight effac ement of the right ventral hemicord. There is moderate to severe right neural foraminal stenosis due to uncinate process and facet hypertrophy and mild left neural foraminal narrowing. C6-7: Broad-based disc osteophyte with mild effacement of ventral thecal sac. There is bilateral unci karena process and facet hypertrophy with mild bilateral neural foraminal narrowing. C7-T1:No significant stenosis. IMPRESSION: Multilevel cervical spine degenerative change, as outlined above. Transcribed Date/Time: 01/07/2019 9:57 AM
[2019-01-07] MEDS ORDERED: Iopamidol-M 300 61% 15 ML VIAL ONE (11:53)
== END 2019-01-07 09:30 | disposition home or self-care (01) ==
LOC: RAD 07:09
PROVIDERS: ATTEND Neurological Surgery
PROC: 008 Central Nervous System and Cranial Nerves, Division (ICD-10-PCS; principal; 2019-01-07)
DX: M54.12 Radiculopathy, cervical region (principal); M48.061 Spinal stenosis, lumbar region without neurogenic claudication; I10 Essential (primary) hypertension; E11.9 Type 2 diabetes mellitus without complications; J43.9 Emphysema, unspecified; E78.5 Hyperlipidemia, unspecified; Z88.8 Allergy status to other drugs, medicaments and biological substances; Z88.5 Allergy status to narcotic agent; Z95.5 Presence of coronary angioplasty implant and graft
CPT/HCPCS: 62302; 72126; Q9967

== ENCOUNTER 2019-01-28 07:17 | Day surgery (SDC) | payer OTHER ==
[2019-01-27 14:10] VITALS: BMI 21.8
--- NOTE | 2019-01-28 09:17 | CT ---
CT MYELOGRAM LUMBAR SPINE: 01/28/2019 HISTORY: Back pain with lumbar radiculopathy. TECHNIQUE: Following the intrathecal administration of iodinated contrast media, axial CT imaging at 2.5 mm inte rvals through the lumbar spine with coronal and sagittal reformatted imaging. FINDINGS: There is partially visualized sigmoid diverticulosis. There is mild aneurysmal dilatation of the infr arenal abdominal aorta measuring 3.0 x 2.7 cm. The lumbar vertebral body height and alignment appears normal. Conus medullaris terminates at T12-L1. T12-L1: Mild disc space narrowing and mild anterior osteophyte formation. No significant central shae l or neural foraminal stenosis. L1-2: Mild bilateral facet hypertrophy. There is a small disc protrusion in the left paracentral isabella on. Mild anterior osteophyte formation. No significant central canal or neural foraminal stenosis. L2-3: Mild bilateral facet hypertrophy. No significant central canal or neural foraminal stenosis. L3-4: Moderate bilateral facet hypertrophy, right greater than left. Mild disc bulge with mild centra l canal stenosis and mild bilateral neural foraminal stenosis. L4-5: Prominent bilateral facet hypertrophy and hypertrophy of the ligamentum flavum. Disc space narr owing and mild disc bulge. Bilateral facet hypertrophy. Mild/moderate central canal stenosis. Mild bilateral neural foraminal stenosis. L5-S1: Minimal disc bulge. Mild bilateral facet hypertrophy. Mild bilateral neural foraminal stenosis . No significant central canal stenosis. No worrisome lytic or blastic bone lesion. No acute fracture or evidence of dislocation. IMPRESSION: Lumbar spine degenerative change as detailed above. Abdominal aortic aneurysm. Transcribed Date/Time: 01/28/2019 10:20 AM
--- NOTE | 2019-01-28 10:14 | RAD ---
Lumbar spine myelogram: 01/28/2019 COMPARISON: None HISTORY: Radiculopathy FINDINGS: Processing Associate imaging of the lumbar spine demonstrate mild multilevel lumbar spine disc space narro wing. There is disc space narrowing at the T11-12 and T12-L1 level with anterior osteophyte formation and there is multilevel lower lumbar spine facet hypertrophy. Informed consent was obtained prior to the procedure. The patient was placed in the oblique prone pos ition on the fluoroscopic table and skin overlying the lower lumbar spine was prepped and draped in normal sterile fashion. The skin overlying the L4-5 level was anesthetized with 1% buffered lidocaine. With intermittent fluo roscopic guidance, a 22-gauge spinal needle was advanced into the thecal sac and removal of the stylet yields clear cerebrospinal fluid. Subsequently, approximately 10 cc of Isovue-200 was injected , outlining the nerve roots of the cauda equina and opacifying the thecal sac. Needle was removed. Patient tolerated the procedure well and was transferred to the CT scanner for CT myelogram of the lumbar spine. Exposure data: 1.3 minutes of fluoroscopic time, 294.1 mcg/sq m IMPRESSION: Degenerative change within the lumbar spine. Successful lumbar spine myelogram.
[2019-01-28] MEDS ORDERED: Iopamidol-M 200 41% 20 ML VIAL ONE (11:18)
[2019-01-28 12:47] VITALS: BP 114/68; TEMP 97.6
== END 2019-01-28 09:55 | disposition home or self-care (01) ==
LOC: RAD 07:17
PROVIDERS: ATTEND Neurological Surgery
PROC: B01B1ZZ Fluoroscopy of Spinal Cord using Low Osmolar Contrast (ICD-10-PCS; principal; 2019-01-28)
DX: M54.16 Radiculopathy, lumbar region (principal); I10 Essential (primary) hypertension; E11.9 Type 2 diabetes mellitus without complications; I25.10 Atherosclerotic heart disease of native coronary artery without angina pectoris; I25.2 Old myocardial infarction; M19.90 Unspecified osteoarthritis, unspecified site; Z88.5 Allergy status to narcotic agent; Z88.6 Allergy status to analgesic agent; Z88.8 Allergy status to other drugs, medicaments and biological substances
CPT/HCPCS: 62304; 72132; Q9966

== ENCOUNTER 2019-02-26 13:46 | Outpatient (CLI) | payer OTHER ==
--- NOTE | 2019-02-26 15:46 | CT ---
CT OF THE ABDOMEN AND PELVIS WITH AND WITHOUT IV CONTRAST INDICATION: Hematuria TECHNIQUE: Noncontrast CT of the abdomen and pelvis was performed. Postcontrast images were obtained in the nephrographic phase and delayed phase. Axial and coronal reformatted images were constructed from the raw data. COMPARISON: None FINDINGS: ABDOMEN: Lung bases: Clear Liver: No focal lesion. Gallbladder: Normal appearing. Pancreas: Normal. Adrenal glands: Normal. Spleen: Normal. Kidneys and ureters: No renal or ureteral calculus is evident. No solid renal lesion is demonstrated. No gross urothelial lesion is identified. Beam scattered artifact from bilateral hip prosthesis slightly limits evaluation of the bladder. Vasculature: There are moderate vascular calcifications seen involving the visualized vasculature. Th ere is mild ectasia of the infrarenal abdominal aorta measuring up to 2.8 cm. There is ectasia of the right common iliac artery 1.5 cm. Lymph nodes:No lymphadenopathy. Free fluid in abdomen:No free fluid is evident. PELVIS: Small and large bowel: Colonic diverticulosis. Small bowel is of normal caliber. Appendix:Not definitely seen Bladder: As above Rectal and perirectal soft tissues:Normal. Reproductive structures: Normal. Free fluid in pelvis: No free fluid is evident. Lymphadenopathy pelvis: No lymphadenopathy is evident. Osseous structures: No acute osseous abnormality. No destructive osteolytic or osteoblastic lesion i s identified. There is scattered degenerative and osteoarthritic changes. Bilateral total hip prostheses. Soft tissues:Normal. IMPRESSION: 1. No renal or ureteral calculus. No solid renal lesion demonstrated. No gross urothelial lesion iden tified. 2. Mild ectasia of the infrarenal abdominal aorta and right common iliac artery. 3. Colonic diverticulosis.
== END 2019-02-26 13:47 | disposition home or self-care (01) ==
LOC: CT 13:46
PROVIDERS: ATTEND Physician Assistant
DX: R31.9 Hematuria, unspecified (principal); R10.823 Right lower quadrant rebound abdominal tenderness; I77.811 Abdominal aortic ectasia; K57.30 Diverticulosis of large intestine without perforation or abscess without bleeding
CPT/HCPCS: 74178; 82565

== ENCOUNTER 2019-02-27 12:24 | Emergency (ER) | payer OTHER ==
[2019-02-27 12:46] LABS: #Basophils 0.1 thou/uL (0.0-0.2); #Eosinphils 0.2 thou/uL (0.0-0.7); #Lymphocytes 2.1 thou/uL (1.20-3.40); #Monocytes 0.7 thou/uL (0.11-0.59); %Basophils 0.7 % (0.0-1.0); %Eosinophils 2.3 % (0.0-10.0); %Lymphocytes 20.9 % (21.0-51.0); %Monocytes 7.2 % (0.0-10.0); %Neutrophils 68.9 % (42.0-75.0); Hemoglobin 12.3 g/dL (14.0-18.0); Mean Corpuscular HGB CONC 34.2 g/dL (32.0-36.0); Mean Corpuscular Hemoglobin 29.8 pg (27.0-31.0); Mean Platelet Volume 8.1 fL (7.4-10.4); Platelet Count 175 thou/uL (130-400); RBC Distribution Width 12.2 % (11.5-14.5); Red Blood Cell (RBC) Count 4.11 mill/uL (4.70-6.10); White Blood Cell (WBC) Count 10.1 thou/uL (4.8-10.8)
[2019-02-27 13:21] LABS: ALT (SGPT) 13 U/L (8-55); AST (SGOT) 11 U/L (5-34); Albumin 4.1 g/dL (3.4-4.8); Alkaline Phosphatase 138 U/L (40-110); Anion Gap 9 mmol/L (10-20); BUN (Urea Nitrogen) 17 mg/dL (8.4-25.7); Bilirubin, Total 0.3 mg/dL (0.2-1.2); Calc. Creatinine Clearance 0 mL/min (70-130); Calcium 9.7 mg/dL (7.8-10.44); Carbon Dioxide 28 mmol/L (23-31); Chloride 100 mmol/L (98-107); Estimated GFR-MDRD 73; Globulin 2.9 g/dL (2.4-3.5); Glucose 248 mg/dL (80-115); Potassium 4.1 mmol/L (3.5-5.1); Sodium 133 mmol/L (136-145)
[2019-02-27 14:10] LABS: Blood, Urine Large (Negative); Glucose, Urine (Dipstick) >=1000 mg/dL (Negative); Leukocyte Negative (Negative); Nitrite Negative (Negative)
[2019-02-27 14:11] LABS: Clarity Turbid (Clear)
[2019-02-27 14:22] LABS: Bilirubin Negative (Negative); Protein, Urine (Dipstick) 100 mg/dL (Neg-Trace); RBC/HPF Greater than 50 HPF (0-3)
[2019-02-27 14:23] LABS: Bacteria/HPF None Seen HPF (None Seen); Squamous Epithelial None Seen HPF (0-3)
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
== END 2019-02-27 15:45 | disposition home or self-care (01) ==
LOC: ERS 12:24
DX: R31.0 Gross hematuria (principal); E11.9 Type 2 diabetes mellitus without complications; I25.2 Old myocardial infarction; I10 Essential (primary) hypertension; F17.210 Nicotine dependence, cigarettes, uncomplicated
CPT/HCPCS: 36415; 80053; 81003; 81015; 85025; 99283

== ENCOUNTER 2019-03-09 05:58 | Day surgery (SDC) | payer OTHER ==
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
[2019-03-09] MEDS ORDERED: Thrombin 5000 UNITS/5 ML VIAL ONE (06:09)
[2019-03-09] MEDS ORDERED: Fentanyl 100 MCG/2 ML VIAL ONE ×2 (06:25→08:25)
[2019-03-09] MEDS ORDERED: Morphine 4 MG/ML VIAL ONE (08:22)
[2019-03-09] MEDS ORDERED: Morphine 2 MG/ML SYRINGE ONE ×2 (08:27→08:40)
[2019-03-09] MEDS ORDERED: Tamsulosin HCl 0.4 MG CAP ONE (08:32)
[2019-03-09] MEDS ORDERED: Acetaminophen/Codeine 30-300mg Tablet ONE (10:08)
--- NOTE | 2019-03-09 11:47 | OP ---
DATE OF PROCEDURE: 03/09/2019 TOLL TEST DESK WORKER: Samuel Leonard PA-C INDICATION: Pain. DIAGNOSIS: Cervical radiculopathy. PROCEDURE PERFORMED: Anterior cervical diskectomy and fusion, C5-6. ANESTHESIA: General. DESCRIPTION OF PROCEDURE: The patient was brought into the operating room, placed under general anesthesia. He was placed on table in a supine position. A transverse incision was planned over the lateral aspect of the neck on the right. After prepping and draping and after an appropriate preoperative pause, the incision was created. The underlying platysma muscles were identified and incised. A blunt tissue plane anterior to the sternocleidomastoid muscle was used to gain access to the prevertebral space. Self-retaining retractors were placed in the wound for optimal exposure. After confirming the appropriate level with C-arm fluoroscopy, an annulotomy was performed in the C5-6 disk space. All disk material as well as anterior and posterior osteophytes were removed. After completing the decompression, a 6 mm lordotic PEEK cage packed with allograft and autograft material was placed within the interbody space. An anterior cervical plate was then fashioned to the front of spine and secured with a total of 4 fixed screws. Midline and lateral structures were inspected and found to be free from significant trauma. The wound was irrigated. Hemostasis was maintained throughout. The wound was then closed in anatomic layers and a pressure dressing was applied. There were no known procedural complications. Job ID: [id number]
== END 2019-03-09 10:46 | disposition home or self-care (01) ==
LOC: SDC 05:58
PROVIDERS: ATTEND Neurological Surgery
PROC: 0RT30ZZ Resection of Cervical Vertebral Disc, Open Approach (ICD-10-PCS; principal; 2019-03-09)
PROC: 0RG10A0 Fusion of Cervical Vertebral Joint with Interbody Fusion Device, Anterior Approach, Anterior Column, Open Approach (ICD-10-PCS; principal; 2019-03-09)
DX: M54.12 Radiculopathy, cervical region (principal); M25.78 Osteophyte, vertebrae; E11.9 Type 2 diabetes mellitus without complications; I10 Essential (primary) hypertension; E78.00 Pure hypercholesterolemia, unspecified; G89.4 Chronic pain syndrome; M19.90 Unspecified osteoarthritis, unspecified site; J30.2 Other seasonal allergic rhinitis; F32.9 Major depressive disorder, single episode, unspecified; Z79.02 Long term (current) use of antithrombotics/antiplatelets; Z79.82 Long term (current) use of aspirin; Z79.899 Other long term (current) drug therapy; Z88.5 Allergy status to narcotic agent; Z88.6 Allergy status to analgesic agent; Z88.8 Allergy status to other drugs, medicaments and biological substances; Z95.5 Presence of coronary angioplasty implant and graft; Z96.643 Presence of artificial hip joint, bilateral
CPT/HCPCS: 76000; C1713; C1776; J0690; J2270; J3010

== ENCOUNTER 2019-04-24 06:30 | Outpatient (CLI) | payer OTHER ==
[2019-04-24 10:36] LABS: Bacteria/HPF None Seen HPF (None Seen); Bilirubin Negative (Negative); Blood, Urine Negative (Negative); Clarity Clear (Clear); Glucose, Urine (Dipstick) Greater than 1000 mg/dL (Negative); Hemoglobin 13.1 g/dL (14.0-18.0); Leukocyte Negative Leu/uL (Negative); Mean Corpuscular HGB CONC 34.4 g/dL (32.0-36.0); Mean Corpuscular Hemoglobin 30.2 pg (27.0-31.0); Mean Corpuscular Volume 87.7 fL (78.0-98.0); Mean Platelet Volume 8.4 fL (7.4-10.4); Nitrite Negative (Negative); Platelet Count 202 thou/uL (130-400); Protein, Urine (Dipstick) Negative (Neg-Trace); RBC Distribution Width 12.4 % (11.5-14.5); RBC/HPF 0-3 HPF (0-3); Red Blood Cell (RBC) Count 4.33 mill/uL (4.70-6.10); Squamous Epithelial None Seen HPF (0-3); Urobilinogen Normal mg/dL (Less than 2); WBC/HPF 0-3 HPF (0-3); White Blood Cell (WBC) Count 10.7 thou/uL (4.8-10.8)
[2019-04-24 10:39] LABS: INR-International Normal Ratio 0.9; PTT 32.7 SEC (22.9-36.1); Prothrombin Time 12.6 SEC (12.0-14.7)
[2019-04-24 11:04] LABS: Anion Gap 15 mmol/L (10-20); BUN (Urea Nitrogen) 15 mg/dL (8.4-25.7); Calc. Creatinine Clearance 0 mL/min (70-130); Calcium 9.8 mg/dL (7.8-10.44); Carbon Dioxide 24 mmol/L (23-31); Chloride 103 mmol/L (98-107); Estimated GFR-MDRD 65; Glucose 318 mg/dL (80-115); Potassium 5.2 mmol/L (3.5-5.1); Sodium 137 mmol/L (136-145)
== END 2019-04-24 06:31 | disposition home or self-care (01) ==
LOC: LABBT 06:30
PROVIDERS: ATTEND Urology
DX: Z01.818 Encounter for other preprocedural examination (principal); C67.9 Malignant neoplasm of bladder, unspecified
CPT/HCPCS: 80048; 81001; 85027; 85610; 85730; 87086; 93005; 93010

== ENCOUNTER 2019-05-07 06:06 | Day surgery (SDC) | payer OTHER ==
[2019-04-24 09:41] VITALS: BMI 22.9
[2019-05-07] MEDS ORDERED: Levofloxacin 500 mg/D5W 100 ml Premix Bag ONE (06:35)
[2019-05-07] MEDS ORDERED: Fentanyl 100 MCG/2 ML VIAL ONE ×3 (07:18→08:50)
[2019-05-07] MEDS ORDERED: B & O ONE (07:27)
[2019-05-07] MEDS ORDERED: Iothalamate Meglumine 60% 50 ML VIAL FS ONE (07:28)
[2019-05-07] MEDS ORDERED: mitoMYcin 40 MG in Water For Injection,Sterile 20 ML I-VESIC SCH (07:45)
[2019-05-07] MEDS ORDERED: Oxybutynin 5 MG TAB ONE (09:12)
--- NOTE | 2019-05-07 09:39 | OP ---
DATE OF PROCEDURE: 05/07/2019 SERVICE: Urology. 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 PROCEDURES PERFORMED: 1. Transurethral resection of bladder tumor between 2 to 5 cm and placement of a right ureteral stent. 2. Installation of mitomycin-C postoperatively. INDICATIONS FOR PROCEDURE: Mr. Sherwood is a 59-year-old white male, who presented to me with gross hematuria. Cystoscopy demonstrated an approximately 3 to 4 cm tumor at the right trigone directly over the right ureteral orifice. He had no hydronephrosis or spread on CT scan. I elected to perform a TURBT and told him he would likely need a stent afterwards. Risks and benefits of the surgery as well as the entire surgical course were described to the patient, and he understands all risks and benefits and wishes to proceed forward. DESCRIPTION OF PROCEDURE: After identification of armband and verification of consent, the patient was brought back to the operating room. He underwent general anesthesia with endotracheal intubation. He was then placed in dorsal lithotomy position and prepped and draped in usual sterile fashion. After appropriate time-out, a lubricated 26-Israeli resectoscope sheath with visual obturator was attempted to pass through the urethra. There was difficulty at the meatus as the penis was rather slender. I used Rikki sounds to dilate him up to approximately 28-Israeli, after which time, we were able to navigate the 26-Israeli resectoscope sheath through the urethra and past the prostate into the bladder. The prostate is mildly hypertrophic with an elevated bladder neck. Attention was turned to the right ureteral orifice, which had a large tumor on it. Full cystoscopy did not demonstrate any additional tumors or lesions within the bladder. The visual obturator was switched out for the bladder bipolar resectoscope loop. Resection was initially carried out on the superior aspect of the tumor and shaved down until the detrusor muscles were visible. The ureteral orifice was identified. I felt it was best not to go significantly deeper directly over the ureteral orifice to avoid further ureteral injury and risk for vesicoureteral reflux, which will greatly increase risk for patient having upper tract tumors if he has recurrence. Meticulous hemostasis was performed around the resection bed, taking care not to cauterize close to or on top of the ureteral orifice. The left ureteral orifice was unharmed in its orthotopic location. After hemostasis was achieved, the tumor specimens were removed from the bladder. The resectoscope was removed leaving the sheath in place and the attachment for instrumentation cystoscopy set inserted through the resectoscope sheath. A Sensor wire was then guided through the right ureteral orifice into the renal pelvis. A 6 x 24 double-J stent with no string attached was advanced over the Sensor wire into the renal pelvis. The wire was then removed leaving a partial curl in the kidney and a good curl in the bladder. The bladder was left full and the resectoscope removed. An 18-Israeli Lovell catheter was inserted with ease into the patient's bladder and 10 mL of sterile water placed into the balloon. 40 mg of mitomycin-C in 20 mL of water were then injected through the Lovell catheter into the patient's bladder and a catheter plug used to plug the tip of the catheter. 16-A B and O suppository was then placed in the patient's rectum. The patient was then taken out of position, awakened, taken to PACU for recovery in stable condition. COMPLICATIONS: None. ESTIMATED BLOOD LOSS: Minimal. RETAINED TUBES AND DRAINS: An 18-Israeli Lovell catheter, which will just stay in for the mitomycin-C and a 6 x 24 double-J right ureteral stent. SPECIMENS: Bladder tumor. DISPOSITION: The patient will stay in recovery for at least an hour for his mitomycin-C instillation, after which time, we will remove the mitomycin-C and the catheter. After the patient's void trial, he will be discharged home and follow up with me on outpatient basis for further discussion regarding his bladder cancer treatment. The stent will stay in for 2 weeks. Job ID: [id number]
[2019-05-07] MEDS ORDERED: PROPOFOL 200 MG/20 ML VIAL ONE (09:53)
[2019-05-07] MEDS ORDERED: Lidocaine 1% PF 5 ML VIAL ONE (09:53)
[2019-05-07] MEDS ORDERED: Ondansetron PF 4 MG/2 ML Vial ONE (09:53)
[2019-05-07] MEDS ORDERED: EPHEDRINE 25 MG/5 ML SYRINGE ONE (09:53)
== END 2019-05-07 11:45 | disposition home or self-care (01) ==
LOC: SDC 06:06
PROVIDERS: ATTEND Urology
PROC: 0T5B8ZZ Destruction of Bladder, Via Natural or Artificial Opening Endoscopic (ICD-10-PCS; principal; 2019-05-07)
DX: C67.0 Malignant neoplasm of trigone of bladder (principal); N40.1 Benign prostatic hyperplasia with lower urinary tract symptoms; R39.11 Hesitancy of micturition; I25.10 Atherosclerotic heart disease of native coronary artery without angina pectoris; E11.59 Type 2 diabetes mellitus with other circulatory complications; Z88.8 Allergy status to other drugs, medicaments and biological substances; Z88.5 Allergy status to narcotic agent; Z88.6 Allergy status to analgesic agent
CPT/HCPCS: 76000; 88307; C1758; C1769; J1956; J2001; J2405; J2704; J3010; J9280

== ENCOUNTER 2019-08-03 08:39 | Outpatient (CLI) | payer OTHER ==
--- NOTE | 2019-08-03 09:43 | ULT ---
ULTRASOUND RETROPERITONEUM COMPLETE: (RENAL) DATE: 08/03/2019 HISTORY: 59-year-old male with bladder cancer FINDINGS: The right kidney measures 10.5 x 5 x 4.5 cm. The left kidney measures 10 x 5 x 5.5 cm. Both kidneys have normal parenchymal echogenicity. There is no hydronephrosis. No moderate sized or large renal cystic or solid renal lesion is identified. Cursory images of the urinary bladder demonstrate no gross abnormality. Bilateral ureteral jets aren't demonstrated. Prevoid bladder volume 90 mL. Post void bladder volume 12 mL. Small bladder lesions could be missed on ultrasound. CT urogram or cystoscopy would be more sensitive for detection of small bladder lesions than ultrasound. IMPRESSION: 1. Minimal post void residual. 2. Normal sonographic appearance of the kidneys.
== END 2019-08-03 08:40 | disposition home or self-care (01) ==
LOC: BICULT 08:39
PROVIDERS: ATTEND Urology
DX: C67.0 Malignant neoplasm of trigone of bladder (principal)
CPT/HCPCS: 76770

== ENCOUNTER 2019-10-12 11:36 | Outpatient (CLI) | payer OTHER ==
--- NOTE | 2019-10-12 11:59 | RAD ---
XR Finger(s) Rt Min 2 View History: Paronychia of the thumb Comparison: None. Findings: Likely a small ossicle of the interphalangeal joint of the thumb. Abnormal soft tissue swel ling along the medial aspect distal phalanx base with periosteal new bone formation and subtle elongation of the cortex. Impression: Findings concerning for a chronic osteomyelitis which may be healing along the distal pha lanx base of the thumb.
== END 2019-10-12 11:37 | disposition home or self-care (01) ==
LOC: BICRAD 11:36
PROVIDERS: ATTEND Physician Assistant
DX: L03.011 Cellulitis of right finger (principal)
CPT/HCPCS: 36415; 80053; 82306; 82607; 84270; 84403; 84443; 85025

== ENCOUNTER 2019-10-12 13:41 | Inpatient (IN) | payer OTHER ==
[2019-10-12 14:30] LABS: #Eosinphils 0.2 thou/uL (0.0-0.7); #Lymphocytes 1.6 thou/uL (1.20-3.40); #Monocytes 0.6 thou/uL (0.11-0.59); #Neutrophils 6.5 thou/uL (1.40-6.50); %Basophils 0.2 % (0.0-1.0); %Eosinophils 2.4 % (0.0-10.0); %Lymphocytes 17.9 % (21.0-51.0); %Monocytes 6.7 % (0.0-10.0); %Neutrophils 72.8 % (42.0-75.0); Hemoglobin 12.5 g/dL (14.0-18.0); Mean Corpuscular Hemoglobin 31.6 pg (27.0-31.0); Mean Corpuscular Volume 90.1 fL (78.0-98.0); Platelet Count 179 thou/uL (130-400); RBC Distribution Width 12.8 % (11.5-14.5); Red Blood Cell (RBC) Count 3.97 mill/uL (4.70-6.10); White Blood Cell (WBC) Count 8.9 thou/uL (4.8-10.8)
[2019-10-12 14:55] LABS: ALT (SGPT) 22 U/L (8-55); AST (SGOT) 16 U/L (5-34); Albumin 4.1 g/dL (3.4-4.8); Alkaline Phosphatase 113 U/L (40-110); Anion Gap 11 mmol/L (10-20); BUN (Urea Nitrogen) 26 mg/dL (8.4-25.7); Bilirubin, Total 0.4 mg/dL (0.2-1.2); Calc. Creatinine Clearance 0 mL/min (70-130); Calcium 9.2 mg/dL (7.8-10.44); Carbon Dioxide 25 mmol/L (23-31); Chloride 105 mmol/L (98-107); Estimated GFR-MDRD 75; Globulin 2.9 g/dL (2.4-3.5); Glucose 225 mg/dL (80-115); Potassium 4.2 mmol/L (3.5-5.1); Sodium 137 mmol/L (136-145)
[2019-10-12] MEDS ORDERED: Morphine 4 MG/ML VIAL ONE (15:01)
[2019-10-12] MEDS ORDERED: diphenhydrAMINE 50 MG/ML VIAL ONE (15:01)
--- NOTE | 2019-10-12 15:50 | RAD ---
Exam:3 views right HISTORY: Pain. Evaluate for osteomyelitis. COMPARISON: 10/12/2019 right thumb radiograph FINDINGS: Remote injury involving the fifth metacarpal. Mild soft tissue swelling involving the secon d metacarpophalangeal joint space. No erosive or destructive changes. Subtle periosteal reaction involving the distal phalanx of the first digit. Overall, joint spaces are preserved. No fracture. IMPRESSION: 1. Radiograph evidence of osteomyelitis involving the first digit 2.. Soft tissue swelling involving the right hand at the level of the second metacarpophalangeal join t space. No erosive or destructive changes. 3. Remote injury involving the fifth metacarpal. Transcribed Date/Time: 10/12/2019 4:17 PM
[2019-10-12] MEDS ORDERED: Cefepime 2 GM VIAL ONE (17:43)
[2019-10-12] MEDS ORDERED: Vancomycin 1.5 GRAM/300 ML BAG 1.5 GM in Premix Bag 1 BAG IVPB SCH (18:00)
[2019-10-12 19:48] VITALS: BMI 21.2
[2019-10-12] MEDS ORDERED: Ondansetron PF 4 MG/2 ML Vial IVP PRN (20:12)
[2019-10-13] MEDS ORDERED: Morphine 2 MG/ML VIAL SLOW IVP PRN (01:42)
[2019-10-13] MEDS: Ketorolac Tromethamine 30 MG/ML VIAL IVP SCH ×2 (05:43→11:17)
[2019-10-13] MEDS ORDERED: Dextrose 5% in Water 1,000 ML IV PRN (07:48)
[2019-10-13] MEDS ORDERED: Dextrose 50% Abboject 50 ML SYRINGE SLOW IVP PRN (07:48)
[2019-10-13] MEDS ORDERED: HumaLOG 300 UNITS/3 ML VIAL SC PRN ×2 (07:48)
[2019-10-13] MEDS ORDERED: Acetaminophen 650 MG Suppository PR PRN (07:49)
[2019-10-13] MEDS ORDERED: Senokot S 8.6-50 MG TAB PO PRN (07:49)
[2019-10-13] MEDS ORDERED: Acetaminophen 325 MG TAB PO PRN (07:49)
[2019-10-13] MEDS ORDERED: Ondansetron ODT 4 MG TAB PO PRN (07:49)
[2019-10-13] MEDS ORDERED: EXENATIDE MICROSPHERES IN PRN (07:57)
[2019-10-13] MEDS ORDERED: Gabapentin 300 MG CAP PO PRN (07:57)
[2019-10-13 07:58] LABS: SARS-CoV-2 NAA Rapid Test Not Detected (NotDetected)
[2019-10-13] MEDS ORDERED: Sodium Chloride 0.9% 1,000 ML IV SCH (08:00)
[2019-10-13] MEDS ORDERED: Vancomycin 1 GM in Premix Bag 1 BAG IVPB SCH ×2 (08:00→09:00)
--- NOTE | 2019-10-13 08:06 | PDOC.HHP ---
Hospitalist HPI - History of Present Illness Right thumb Osteomyelitis History of Present Illness: PCP: Suresh The patient is a 59-year-old male with a past medical history significant for diabetes type 2, CAD, hypertension, hyperlipidemia that presents to the ER for the above complaint. Patient reports that approximately a 1 month ago, he suffered an injury to his right thumb while loading his trailer. He says that his hand must have hit something, "maybe a nail or a piece of wood." He reports that he had a small puncture wound to the proximal nail fold of his right thumb. He reports that over the past month he has been using a needle to drain it and has been soaking it in Epsom salts from time to time. He reports that it throbs and becomes swollen, sometimes it drains pus. He says that he saw his primary care provider a few days ago and was told that he had osteomyelitis of his right thumb. He was started on Bactrim. After taking his first dose of Bactrim yesterday, he developed chest tightness and itching all over his body. Subsequently, he came to the ER. He denies any fever, nausea or vomiting. He has full function of his right hand. He is right-hand dominant. His tetanus is up-to-date. His last meal was yesterday afternoon. ED Course: Patient presented with a normal blood pressure, normal pulse, normal respirations, normal O2 sat, afebrile. X-ray of the right hand showed osteomyelitis of the first digit and a remote injury involving the fifth metacarpal. EKG normal sinus rhythm with right bundle branch block WBC 8.9, ESR 14, CRP less than 0.50, COVID screen negative Medications given: Vancomycin Cefepime Benadryl Morphine Consult to Dr. Bustos, hand surgeon Hospitalist ROS - Review of Systems Constitutional: denies: fever, chills Cardiovascular: denies: chest pain, palpitations, edema Gastrointestinal: denies: nausea, vomiting, abdominal pain, diarrhea Genitourinary: denies: dysuria Skin: reports: rash. denies: bruising All other systems reviewed; all pertinent +/- noted in HPI/Subj - Medication Medications: Active Medications Generic Name Dose Route Start Last Admin Trade Name Freq PRN Reason Stop Dose Admin Ketorolac Tromethamine 30 mg 10/13/19 06:00 10/13/19 05:43 Toradol IVP 10/18/19 06:01 30 mg Q6HR EIRC Administration Ondansetron HCl 4 mg 10/12/19 20:12 10/12/19 20:27 Zofran IVP 4 mg Q6H PRN Administration Nausea/Vomiting Allergies: Sulfa Propoxyphene napsylate Ibuprofen Metformin Bert Hospitalist History - Past Medical History Source: patient, RN notes reviewed Other Medical History: PAST MEDICAL HISTORY: Hypertension Hyperlipidemia Diabetes type 2 [place] (2014) Chronic back pain Iron deficiency anemia CAD x1 BPH SURGICAL HISTORY: CAD x1 (2014) Bilateral hips Spleen repair Colon Repair Appendectomy Left thumb Left foot Amp of distal tip of the left third finger SOCIAL HISTORY: Patient lives at home with family. Currently smokes 4 cigarettes/day, marijuana once a month, alcohol socially. Ambulates without any assistive devices. FAMILY HISTORY: Noncontributory for this case. - Exam General Appearance: NAD, awake alert ENT: normocephalic atraumatic Neck: supple, symmetric Heart: RRR, no murmur, no gallops, no rubs, normal peripheral pulses Respiratory: CTAB, no wheezes, no rales, no ronchi, normal chest expansion, no tachypnea Gastrointestinal: soft, non-tender, non-distended, no guarding, no rigidity Extremities - other findings: Mild swelling and erythema to proximal nailfold R thumb, paronychia morn Neurological: normal sensation to touch, no weakness, no focal deficits Musculoskeletal: normal tone, normal strength Psychiatric: normal affect, A&O x 3 Hospitalist Results - Labs Result Diagrams: 10/13/19 08:30 10/13/19 08:30 Lab results: WBC 8.9 thou/uL (4.8-10.8) 10/12/19 14:11 Hgb 12.5 g/dL (14.0-18.0) L 10/12/19 14:11 Hct 35.7 % (42.0-52.0) L 10/12/19 14:11 MCV 90.1 fL (78.0-98.0) 10/12/19 14:11 Plt Count 179 thou/uL (130-400) 10/12/19 14:11 Neutrophils % 72.8 % (42.0-75.0) 10/12/19 14:11 ESR Westergren 14 mm/hr (Less than 20) 10/12/19 14:08 Sodium 137 mmol/L (136-145) 10/12/19 14:11 Potassium 4.2 mmol/L (3.5-5.1) 10/12/19 14:11 Chloride 105 mmol/L (98-107) 10/12/19 14:11 Carbon Dioxide 25 mmol/L (23-31) 10/12/19 14:11 BUN 26 mg/dL (8.4-25.7) H 10/12/19 14:11 Creatinine 1.01 mg/dL (0.7-1.3) 10/12/19 14:11 Glucose 225 mg/dL (80-115) H 10/12/19 14:11 Calcium 9.2 mg/dL (7.8-10.44) 10/12/19 14:11 Total Bilirubin 0.4 mg/dL (0.2-1.2) 10/12/19 14:11 AST 16 U/L (5-34) 10/12/19 14:11 ALT 22 U/L (8-55) 10/12/19 14:11 Alkaline Phosphatase 113 U/L (40-110) H 10/12/19 14:11 C-Reactive Protein Less than 0.50 mg/dL (= or < 0.5) 10/12/19 14:08 Serum Total Protein 7.0 g/dL (5.8-8.1) 10/12/19 14:11 Albumin 4.1 g/dL (3.4-4.8) 10/12/19 14:11 - EKG Interpretation EKG: NSR RBBB - Radiology Interpretation Other Status: image reviewed by me, report reviewed by me Additional Comment: XR right hand Hospitalist H&P A/P - Problem (1) Osteomyelitis of right hand Code(s): M86.9 - OSTEOMYELITIS, UNSPECIFIED Status: Acute Assessment and Plan: We will admit the patient to the surgical floor, inpatient status. Expected length of stay greater than 2 midnights. Patient presented with a normal blood pressure, normal pulse, normal respirations, normal O2 sat, afebrile. WBCs 8.9, ESR 14, CRP less than 0.50. X-ray right hand positive for osteomyelitis of the right thumb. Given Vanco and cefepime in ER. N.p.o. Dr. Bustos is admitting physician. We are consulted for medical management. We will continue Vanco and cefepime for broad-spectrum coverage. Will start IV fluids. We will continue n.p.o. status. Patient is scheduled for surgery today. (2) DMII (diabetes mellitus, type 2) Status: Chronic Assessment and Plan: Patient takes Bydureon weekly. Will hold for now. Will start moderate sliding scale. AC/at bedtime Accu-Cheks. (3) CAD (coronary artery disease) Code(s): I25.10 - ATHSCL HEART DISEASE OF [place] CORONARY ARTERY W/O ANG PCTRS Status: Chronic Assessment and Plan: Patient takes Brilinta daily. Will hold for now. Will restart when surgery deems appropriate. (4) HTN (hypertension) Code(s): I10 - ESSENTIAL (PRIMARY) HYPERTENSION Status: Chronic Assessment and Plan: Patient takes lisinopril daily. Will restart patient's home dose of lisinopril. (5) HLD (hyperlipidemia) Code(s): E78.5 - HYPERLIPIDEMIA, UNSPECIFIED Status: Chronic Assessment and Plan: Patient takes atorvastatin daily. Will restart atorvastatin. - Plan Plan: SCDs for DVT prophylaxis. No GI prophylaxis. Full code. Discussed the case with Dr. Alexander.
[2019-10-13] MEDS ORDERED: Vancomycin HCl 1.25 GM in Sodium Chloride 0.9% 250 ML 250 ML IVPB SCH (08:30)
[2019-10-13 08:45] LABS: #Eosinphils 0.2 thou/uL (0.0-0.7); #Lymphocytes 0.6 thou/uL (1.20-3.40); #Monocytes 0.7 thou/uL (0.11-0.59); #Neutrophils 10.1 thou/uL (1.40-6.50); %Basophils 0.2 % (0.0-1.0); %Eosinophils 1.5 % (0.0-10.0); %Lymphocytes 5.5 % (21.0-51.0); %Monocytes 5.9 % (0.0-10.0); %Neutrophils 86.9 % (42.0-75.0); Mean Corpuscular Hemoglobin 30.8 pg (27.0-31.0); Mean Corpuscular Volume 90.5 fL (78.0-98.0); Mean Platelet Volume 8.6 fL (7.4-10.4); Platelet Count 150 thou/uL (130-400); RBC Distribution Width 12.9 % (11.5-14.5); Red Blood Cell (RBC) Count 3.91 mill/uL (4.70-6.10); White Blood Cell (WBC) Count 11.7 thou/uL (4.8-10.8)
[2019-10-13] MEDS ORDERED: Multivitamin W/ Minerals 1 TAB PO SCH (09:00)
[2019-10-13] MEDS ORDERED: Cefepime 2 GM in Sodium Chloride 0.9% 100 ML IVPB SCH (09:00)
[2019-10-13] MEDS ORDERED: Tamsulosin HCl 0.4 MG CAP PO SCH (09:00)
[2019-10-13] MEDS ORDERED: Lisinopril 5 MG TAB PO SCH (09:00)
[2019-10-13] MEDS ORDERED: DULoxetine 30 MG CAP PO SCH (09:00)
[2019-10-13] MEDS ORDERED: Non-Formulary Item 1 EACH (Multivit-Min/Fa/Lycopen/Lutein [Centrum Silver Men Tablet] 1 E PO SCH (09:00)
[2019-10-13] MEDS ORDERED: Ferrous Sulfate 325 MG TAB PO SCH (09:00)
[2019-10-13 09:04] LABS: Anion Gap 12 mmol/L (10-20); BUN (Urea Nitrogen) 19 mg/dL (8.4-25.7); Calc. Creatinine Clearance 59 mL/min (70-130); Carbon Dioxide 22 mmol/L (23-31); Chloride 107 mmol/L (98-107); Estimated GFR-MDRD 67; Glucose 217 mg/dL (80-115); Sodium 137 mmol/L (136-145)
[2019-10-13] MEDS ORDERED: Lidocaine 1% PF 5 ML VIAL ONE (09:42)
[2019-10-13] MEDS ORDERED: PHENYLEPHRINE-NS 100 MCG/ML 10 ML SYRINGE ONE (09:42)
[2019-10-13] MEDS ORDERED: PROPOFOL 200 MG/20 ML VIAL ONE (09:42)
[2019-10-13] MEDS ORDERED: EPHEDRINE 25 MG/5 ML SYRINGE ONE (09:42)
[2019-10-13 13:31] LABS: Bacteria/HPF None Seen HPF (None Seen); Bilirubin Negative (Negative); Blood, Urine Negative (Negative); Clarity Clear (Clear); Glucose, Urine (Dipstick) Greater than 1000 mg/dL (Negative); Ketone, Urine 10 mg/dL (Negative); Leukocyte Negative Leu/uL (Negative); Mucous/LPF 1+ LPF (<2+); Nitrite Negative (Negative); Protein, Urine (Dipstick) 20 mg/dL (Neg-Trace); Specific Gravity, Urine 1.025 (1.002-1.036); Squamous Epithelial 0-3 HPF (0-3); Urobilinogen Normal mg/dL (Less than 2); WBC/HPF 0-3 HPF (0-3)
[2019-10-13] MEDS ORDERED: Fentanyl 100 MCG/2 ML VIAL ONE (13:39)
[2019-10-13] MEDS ORDERED: Bacitracin Zinc Ointment 30 gm TUBE ONE (13:40)
[2019-10-13] MEDS ORDERED: Sodium Chloride 0.9% 10 ML ONE (13:40)
[2019-10-13] MEDS ORDERED: Bupivacaine PF 0.5% 30 ML VIAL ONE (13:40)
[2019-10-13] MEDS ORDERED: Ondansetron HCl/PF 4 MG/2 ML Vial IVP PRN (15:21)
[2019-10-13] MEDS ORDERED: Promethazine HCl 25 MG/ML VIAL SLOW IVP PRN (15:21)
[2019-10-13] MEDS ORDERED: Meperidine HCl/PF 25 MG/ML VIAL SLOW IVP PRN (15:21)
[2019-10-13] MEDS ORDERED: HYDROmorphone 2 MG/ML VIAL SLOW IVP PRN (15:21)
[2019-10-13] MEDS ORDERED: Promethazine HCl 25 MG/ML VIAL IM PRN (15:21)
[2019-10-13] MEDS ORDERED: Ketorolac Tromethamine 30 MG/ML VIAL ONE (15:34)
[2019-10-13 16:09] VITALS: TEMP 97.7
[2019-10-13 17:53] VITALS: BP 131/66
--- NOTE | 2019-10-13 20:18 | PDOC.EVN ---
Event Note - Event Note Event Note: I reviewed the chart. Examined the patient. Discussed assessment and plan of care with LES Mr. Coyle. Agree with plan of care and assessment as documented.
[2019-10-13] MEDS ORDERED: Prevnar 13-Val Conj/PF 0.5 ML SYRINGE IM ONE (21:00)
[2019-10-13] MEDS ORDERED: Atorvastatin Calcium 40 MG TAB PO SCH (21:00)
--- NOTE | 2019-10-13 22:47 | OP ---
DATE OF PROCEDURE: 10/13/2019 PREOPERATIVE DIAGNOSIS: Right thumb abscess with possible osteomyelitis findings. No gross osteomyelitis, thumb abscess in the center what appears to be some type of granuloma process. PROCEDURE PERFORMED: 1. Bone biopsy, right thumb base, mid third of the thumb distal phalanx. 2. Nail removal. 3. Right thumb abscess incision and drainage with complete cavity removal. CULTURE SENT: Yes, of the granulomas type cavity and the central infection and bone biopsy. ESTIMATED BLOOD LOSS: 10 mL or less. TOURNIQUET TIME: 12 minutes. The infection appeared to be a paronychia, small radial dorsal thumb base of the nail. DESCRIPTION OF PROCEDURE: After successful general endotracheal anesthesia, the limb was prepped and draped. The patient had a total of 12 mL of 0.5% Marcaine block given to metacarpophalangeal joint after exsanguination of limb. We then were able to elevate with combination of 11 blade and a Platinum blade. In the area of thickened nail bed in the center was a small area of 2 to 3 mm of gross purulence. We did not penetrate deep through the nail matrix, but in order to ensure that we removed the nail, explored the periungual region and did not find evidence of pulp space or periungual spread. We then elevated the 1 cm area obliquely of the skin over the eponychial fold and the nail bed, did not find it. We made a 5 mm incision longitudinal with a Platinum blade and into the nail bed at the junction of the sterile and germinal matrix and in the area where we thought on radiographs there was lucency. We then took 18-gauge needle and penetrated the cortex for specimen. No gross infection, but we sent the specimen for bone culture. We also sent the area of 3 mm of hard granulation type tissue and the central purulence for culture as well. We deflated the tourniquet. We closed the defect. We made a nailbed longitudinally with three 5-0 nylon chromic sutures. We obtained hemostasis and placed bacitracin, Adaptic onto the fold I have created after closing the proximal half and the distal half free. He had a pink digit, good hemostasis and left the operating room without evidence of anesthetic or operative complication. Job ID: [id number]
--- NOTE | 2019-10-17 15:41 | EKG ---
Test Reason : Blood Pressure : / mmHG Vent. Rate : 060 BPM Atrial Rate : 060 BPM P-R Int : 156 ms QRS Dur : 140 ms QT Int : 434 ms P-R-T Axes : 067 076 047 degrees QTc Int : 434 ms Normal sinus rhythm Right bundle branch block Abnormal ECG Confirmed by DANIEL SMITH DO ([id number]), fashion editor NENO COLLIER ([id number]) on 10/17/2019 3:41:12 PM Referred By: Confirmed By:DANIEL SMITH DO
== END 2019-10-13 17:47 | disposition home or self-care (01) | DRG 580 ==
LOC: ERS 13:41 → SURG A 18:05
PROVIDERS: ADMIT Orthopaedic Surgery Hand Surgery; ATTEND Orthopaedic Surgery Hand Surgery
PROC: 0PB Upper Bones, Excision (ICD-10-PCS; principal; 2019-10-13)
PROC: 0HBQXZZ Excision of Finger Nail, External Approach (ICD-10-PCS; 2019-10-13)
DX: L02.511 Cutaneous abscess of right hand (principal); M86.8X4 Other osteomyelitis, hand; E11.69 Type 2 diabetes mellitus with other specified complication; I25.10 Atherosclerotic heart disease of native coronary artery without angina pectoris; I10 Essential (primary) hypertension; E78.5 Hyperlipidemia, unspecified; G89.29 Other chronic pain; M54.9 Dorsalgia, unspecified; N40.0 Benign prostatic hyperplasia without lower urinary tract symptoms; Z20.828 Contact with and (suspected) exposure to other viral communicable diseases; F17.210 Nicotine dependence, cigarettes, uncomplicated; Z88.6 Allergy status to analgesic agent; Z88.2 Allergy status to sulfonamides; Z88.8 Allergy status to other drugs, medicaments and biological substances; I25.2 Old myocardial infarction; Z90.49 Acquired absence of other specified parts of digestive tract; Z79.899 Other long term (current) drug therapy; Z79.82 Long term (current) use of aspirin
CPT/HCPCS: 36415; 36416; 80048; 80053; 81001; 82306; 82607; 84270; 84403; 84443; 85025; 85652; 86140; 87070; 87102; 87205; 87206; 87635; 88305; 93005; 96365; 96367; 96375; J0692; J1200; J1885; J2270; J2405; J2704; J3010; J3370; J3490; S0020; U0002; U0003

== ENCOUNTER 2020-03-22 22:31 | Emergency (ER) | payer OTHER ==
[2020-03-22] MEDS ORDERED: Proparacaine 0.5% Opth 15 ML BOT ONE (23:01)
[2020-03-22] MEDS ORDERED: Fluorescein Opthalmic Strip ONE (23:01)
== END 2020-03-22 23:55 | disposition home or self-care (01) ==
LOC: ERS 22:31
DX: T15.01XA Foreign body in cornea, right eye, initial encounter (principal); E11.9 Type 2 diabetes mellitus without complications; E78.5 Hyperlipidemia, unspecified; I10 Essential (primary) hypertension; M19.90 Unspecified osteoarthritis, unspecified site; I25.2 Old myocardial infarction; F17.210 Nicotine dependence, cigarettes, uncomplicated
CPT/HCPCS: 65222

== ENCOUNTER 2021-03-30 10:09 | Outpatient (CLI) | payer OTHER | END 2021-03-30 10:10 | disposition home or self-care (01) | LOC: BICRAD 10:09 | PROVIDERS: ATTEND Physician Assistant | DX: M25.511 Pain in right shoulder (principal); M89.8X1 Other specified disorders of bone, shoulder; M19.011 Primary osteoarthritis, right shoulder | CPT/HCPCS: 36415; 80053; 82043; 83036 ==

== ENCOUNTER 2022-03-07 06:00 | Day surgery (SDC) | payer OTHER ==
[2022-03-06 14:22] VITALS: BMI 21.1
[2022-03-07] MEDS ORDERED: Lidocaine Viscous Sol 2% 15 ml UD Cup ONE (07:06)
[2022-03-07] MEDS ORDERED: Fentanyl 100 MCG/2 ML VIAL ONE (07:06)
[2022-03-07] MEDS ORDERED: PROPOFOL 200 MG/20 ML VIAL ONE (07:39)
[2022-03-07] MEDS ORDERED: Lidocaine 1% PF 5 ML VIAL ONE (07:39)
== END 2022-03-07 09:08 | disposition home or self-care (01) ==
LOC: SDC 06:00
PROVIDERS: ATTEND Internal Medicine
PROC: 0D748ZZ Dilation of Esophagogastric Junction, Via Natural or Artificial Opening Endoscopic (ICD-10-PCS; principal; 2022-03-07)
DX: K22.2 Esophageal obstruction (principal); K21.00 Gastro-esophageal reflux disease with esophagitis, without bleeding; K44.9 Diaphragmatic hernia without obstruction or gangrene; R68.81 Early satiety; R63.4 Abnormal weight loss; Z68.21 Body mass index [BMI] 21.0-21.9, adult; Z79.02 Long term (current) use of antithrombotics/antiplatelets; Z79.82 Long term (current) use of aspirin; Z79.84 Long term (current) use of oral hypoglycemic drugs; Z79.899 Other long term (current) drug therapy; Z88.2 Allergy status to sulfonamides; Z88.6 Allergy status to analgesic agent; Z88.8 Allergy status to other drugs, medicaments and biological substances
CPT/HCPCS: J2704; J3010

== ENCOUNTER 2022-03-29 10:47 | Outpatient (CLI) | payer OTHER | END 2022-03-29 10:48 | disposition home or self-care (01) | LOC: BICRAD 10:47 | PROVIDERS: ATTEND Nurse Practitioner Family | DX: R04.2 Hemoptysis (principal) | CPT/HCPCS: 36415; 71046; 80053; 85025; 86304 ==

== ENCOUNTER 2022-04-02 10:20 | Outpatient (CLI) | payer OTHER ==
[2022-04-02] MEDS ORDERED: Iopamidol-370 76% 500 ML 1 ML ONE (10:29)
== END 2022-04-02 10:21 | disposition home or self-care (01) ==
LOC: BICCT 10:20
PROVIDERS: ATTEND Nurse Practitioner Family
DX: R04.2 Hemoptysis (principal); J43.2 Centrilobular emphysema; I77.810 Thoracic aortic ectasia; K22.89 Other specified disease of esophagus
CPT/HCPCS: 71260; Q9967

== ENCOUNTER 2022-04-11 11:17 | Outpatient (CLI) | payer OTHER | END 2022-04-11 11:18 | disposition home or self-care (01) | LOC: BICRAD 11:17 | PROVIDERS: ATTEND Nurse Practitioner Family | DX: M79.641 Pain in right hand (principal); M19.041 Primary osteoarthritis, right hand | CPT/HCPCS: 36415; 81001; 83036; 85025 ==

== ENCOUNTER 2022-05-28 07:34 | Outpatient (CLI) | payer OTHER ==
[2022-05-28] MEDS ORDERED: EPINEPHrine 1 MG/ML AMP ONE (08:15)
[2022-05-28] MEDS ORDERED: Lidocaine 1% PF 5 ML VIAL ONE (08:15)
[2022-05-28] MEDS ORDERED: Sodium Chloride 0.9% 50 ML BAG ONE (08:15)
[2022-05-28] MEDS ORDERED: Iopamidol 300 61% 100 ML VIAL FS ONE (08:15)
== END 2022-05-28 07:35 | disposition home or self-care (01) ==
LOC: RAD 07:34
PROVIDERS: ATTEND Orthopaedic Surgery
DX: M25.511 Pain in right shoulder (principal); M75.31 Calcific tendinitis of right shoulder; M19.011 Primary osteoarthritis, right shoulder; J43.9 Emphysema, unspecified
CPT/HCPCS: 23350; J0171; Q9967

== ENCOUNTER 2022-07-04 13:34 | Outpatient (CLI) | payer OTHER | END 2022-07-04 13:35 | disposition home or self-care (01) | LOC: RAD 13:34 | PROVIDERS: ATTEND Internal Medicine Critical Care Medicine | DX: R06.00 Dyspnea, unspecified (principal) | CPT/HCPCS: 71046 ==

== ENCOUNTER 2022-09-22 06:42 | Emergency (ER) | payer OTHER ==
[2022-09-22] MEDS ORDERED: Methocarbamol 500 MG TAB PO SCH (08:00)
[2022-09-22 08:04] LABS: #Basophils 0.1 thou/uL (0.0-0.2); #Eosinphils 0.4 thou/uL (0.0-0.7); #Monocytes 0.9 thou/uL (0.11-0.59); #Neutrophils 7.4 thou/uL (1.40-6.50); %Basophils 0.5 % (0.0-1.0); %Eosinophils 3.7 % (0.0-10.0); %Lymphocytes 13.8 % (21.0-51.0); %Monocytes 8.6 % (0.0-10.0); %Neutrophils 72.7 % (42.0-75.0); Hematocrit 35.1 % (42.0-52.0); Mean Corpuscular HGB CONC 34.2 g/dL (32.0-36.0); Mean Corpuscular Hemoglobin 30.8 pg (27.0-31.0); Mean Platelet Volume 9.8 fL (7.4-10.4); Platelet Count 183 10x3/uL (130-400); RBC Distribution Width 13.7 % (11.5-14.5); White Blood Cell (WBC) Count 10.2 10x3/uL (4.8-10.8)
[2022-09-22] MEDS ORDERED: Lidocaine 4% Patch TD SCH (08:15)
[2022-09-22 08:28] LABS: ALT (SGPT) 18 U/L (8-55); AST (SGOT) 14 U/L (5-34); Alkaline Phosphatase 95 U/L (40-110); Anion Gap 12 mmol/L (10-20); BUN (Urea Nitrogen) 21 mg/dL (8.4-25.7); Bilirubin, Total 0.2 mg/dL (0.2-1.2); Calc. Creatinine Clearance 0 mL/min (70-130); Calcium 8.9 mg/dL (7.8-10.44); Carbon Dioxide 23 mmol/L (23-31); Chloride 106 mmol/L (98-107); Estimated GFR 76; Globulin 2.6 g/dL (2.4-3.5); Glucose 210 mg/dL (80-115); Lipase 23 U/L (8-78); Potassium 4.4 mmol/L (3.5-5.1); Protein, Total 6.6 g/dL (5.8-8.1); Sodium 137 mmol/L (136-145)
[2022-09-22] MEDS ORDERED: Acetaminophen 325 MG TAB ONE (08:34)
[2022-09-22] MEDS ORDERED: Iopamidol-370 76% 500 ML MDV (1 ML CHARGE) ONE (10:45)
[2022-09-22] MEDS ORDERED: Transdermal Patch Removal TOP SCH (20:15)
== END 2022-09-22 09:48 | disposition home or self-care (01) ==
LOC: ERS 06:42
DX: S16.1XXA Strain of muscle, fascia and tendon at neck level, initial encounter (principal); R10.11 Right upper quadrant pain; E78.5 Hyperlipidemia, unspecified; E11.9 Type 2 diabetes mellitus without complications; F17.210 Nicotine dependence, cigarettes, uncomplicated; I10 Essential (primary) hypertension; V89.2XXA Person injured in unspecified motor-vehicle accident, traffic, initial encounter; Z79.82 Long term (current) use of aspirin; Z79.899 Other long term (current) drug therapy
CPT/HCPCS: 36415; 70450; 72125; 74177; 80053; 83690; 84484; 85025; 93005; Q9967

== ENCOUNTER 2024-02-20 07:55 | Outpatient (CLI) | payer MEDICARE, MEDICAID ==
[2024-02-20] MEDS ORDERED: Iopamidol 370 76% 100 ML VIAL ONE (15:05)
== END 2024-02-20 07:56 | disposition home or self-care (01) ==
LOC: BICCT 07:55
PROVIDERS: ATTEND Nurse Practitioner Family
DX: R41.3 Other amnesia (principal); R25.8 Other abnormal involuntary movements
CPT/HCPCS: 70470; Q9967

== ENCOUNTER 2024-03-18 07:59 | Outpatient (CLI) | payer MEDICARE, MEDICAID ==
[2024-03-18] MEDS ORDERED: Iopamidol 370 76% 100 ML VIAL ONE (10:49)
== END 2024-03-18 08:00 | disposition home or self-care (01) ==
LOC: BICCT 07:59
PROVIDERS: ATTEND Internal Medicine
DX: C67.1 Malignant neoplasm of dome of bladder (principal); D72.828 Other elevated white blood cell count; D50.8 Other iron deficiency anemias; I71.43 Infrarenal abdominal aortic aneurysm, without rupture; I70.90 Unspecified atherosclerosis; Z79.899 Other long term (current) drug therapy
CPT/HCPCS: 36415; 74178; 82565

== ENCOUNTER 2024-10-07 08:02 | Outpatient (CLI) | payer MEDICARE, MEDICAID | END 2024-10-07 08:03 | disposition home or self-care (01) | LOC: RAD 08:02 | PROVIDERS: ATTEND Internal Medicine Critical Care Medicine | DX: R06.00 Dyspnea, unspecified (principal) | CPT/HCPCS: 71046 ==